=== PATIENT | male | born 1950 | race Caucasian/White ===

== ENCOUNTER → 2017-10-21 14:40 | Outpatient (CLI) | payer OTHER, MEDICARE, SELFPAY ==
[2017-03-25 10:13] VITALS: BP 134/85
[2017-07-15 08:32] VITALS: BMI 32.8
[2017-07-15 13:54] VITALS: BP 126/76
[2017-10-21 16:11] LABS: Hemoglobin A1c 6.9 % (4.2-6.3)
== END ==
PROVIDERS: Family Provider Preventive Medicine Occupational Medicine; PCP Preventive Medicine Occupational Medicine; Visit Provider Urology
DX: E11.9 Type 2 diabetes mellitus without complications (principal)
CPT/HCPCS: 36415; 83036

== ENCOUNTER → 2017-10-29 17:19 | Outpatient (CLI) | payer OTHER, MEDICARE, SELFPAY | PROVIDERS: Visit Provider Urology | DX: C67.8 Malignant neoplasm of overlapping sites of bladder (principal); R31.9 Hematuria, unspecified | CPT/HCPCS: 87086; 87088 ==

== ENCOUNTER → 2017-11-18 13:18 | Outpatient (CLI) | payer OTHER, MEDICARE, SELFPAY ==
--- NOTE | 2017-11-18 13:20 | CT_ITS ---
STUDY: CT ABDOMEN AND PELVIS WITH CONTRAST REASON FOR EXAM: Male, 67 years old. Bladder cancer. RADIATION DOSAGE (If Supplied By Facility): CTDIvol = ( 20.14 ) mGy, DLP = ( 2400.46 ) mGycm TECHNIQUE: Transaxial images were obtained from the dome of the diaphragm to the symphysis pubis without oral contrast. 100 ml of Isovue 300 contrast was administered. Sagittal and coronal images were reconstructed. Individualized dose optimization techniques were used for this CT. COMPARISON: CT of the abdomen and pelvis, July 03, 2017. FINDINGS: There is mild thickening of the lower left oblique fissure. Lungs appear clear. The visualized portions of the heart are within normal limits. Normal liver. Normal gallbladder and extrahepatic biliary system. Normal spleen. Normal pancreas. Normal bilateral adrenal glands. The right kidney is of normal size and cortical thickness. There is normal uptake and excretion of contrast material. There is mild hydronephrosis and ureterectasis to the bladder without evidence of filling defect. Normal left kidney. Normal left ureter. There is a small type I hiatal hernia. The distal stomach is unremarkable. Normal small intestine. There is sigmoid diverticulosis most marked in the distal descending and sigmoid colon without inflammatory change. The appendix is visualized and appears normal. There is diffuse atherosclerotic calcification of the abdominal aorta, without a demonstrated aneurysm. Normal inferior vena cava. Normal retroperitoneum. The urinary bladder is irregular in contour with evidence of enfolding of the bladder wall and mild bladder wall thickening. There is no obvious interval change Normal prostate. There are phleboliths in the pelvis without lymphadenopathy. No free air or free fluid is seen within the peritoneal cavity. Umbilical hernia of omental fat. There is a small left inguinal hernia of omental fat. There are diffuse degenerative changes of the visualized lumbar spine. CT/Abdomen/Pelvis W IV Cont ONLY IMPRESSION: 1. Stable appearance of the urinary bladder. There is no new mass or filling defect. 2. Right hydronephrosis and ureterectasis to the level of the bladder without obstruction or filling defect. This is stable. 3. Small type I hiatal hernia. 4. No interval change. Electronically Signed: Rosales Burciaga DO at 14:33 EDT Tel [phone], Service support ,
[2017-11-18 13:31] LABS: CREATININE FINGERSTICK 1.1 mg/dL (0.70-1.30); EGFR FINGERSTICK > 60.0000 mL/min (>60)
== END ==
PROVIDERS: Family Provider Preventive Medicine Occupational Medicine; PCP Preventive Medicine Occupational Medicine; Visit Provider Urology
DX: C67.8 Malignant neoplasm of overlapping sites of bladder (principal); R31.1 Benign essential microscopic hematuria
CPT/HCPCS: 74177; Q9967; A4216

== ENCOUNTER → 2018-02-18 16:49 | Outpatient (CLI) | payer OTHER, MEDICARE, SELFPAY ==
--- NOTE | 2018-02-18 15:45 | CYSPIN_PTH ---
PATIENT: DOREEN PINZON LOC: [facility] U#:[id number] AGE/SX: 75/M ROOM: RE02/18/[address]: THEE Ayoub : 1950 BED: DIS: SPEC #: [id number] RECD: 02/19/18 08:39 STATUS: FERMIN FAM #: [id number] KIMBER: 02/18/18 15:[address]: Nataliya Stone NP DEPT: CYTOLOGY RECD BY: Pablo Stallings Tissues: Urine Procedures: Pap Stain (control) Special Stain Group II Cytospin Fluid HEADER OPERATION: Not noted PRE-OP DIAGNOSIS: Hematuria, history bladder CA TISSUE SUBMITTED: Urine for cytology DIAGNOSIS CYTOLOGY Urine for cytology (cytospin): Atypical urothelial cells noted. Bloody specimen. Acute inflammation. SJ:[email or web address] 02/22/18 COMMENT Please make reference to previous specimen ([id number]) bladder, TUR, ([id number]) urinary bladder, TUR and ([id number]) bladder, TUR with diagnosis of urothelial carcinoma. Case has been reviewed in consultation with Dr. Samuel who concurs with the above diagnosis. IDC:AM CYTOLOGY STUDY Slides are reviewed. CYTOLOGY GROSS Received is 15 ml of cloudy brown fluid labeled with the patient's name and and designated per the requisition as urine. Submitted for cytology preparation. / JOSSE:lashonda 02/19/18 TC:5 CPT: 92926
[2018-02-18 16:54] LABS: Cytology, Body Fluid / CSF SEE PATHOLOGY REPORT
== END ==
PROVIDERS: Visit Provider Nurse Practitioner Adult Health
DX: R31.9 Hematuria, unspecified (principal); Z85.51 Personal history of malignant neoplasm of bladder
CPT/HCPCS: 87086; 88108; 88313

== ENCOUNTER 2018-03-10 06:23 | Day surgery (SDC) | payer OTHER, MEDICARE, SELFPAY ==
[2018-03-10 06:48] VITALS: BP 130/79; PULSE 108; RESP 20; TEMP 36.4; O2SAT 92; BMI 32.3
[2018-03-10 06:56] LABS: Prothrombin Time Fingerstick 11.7 SEC (11.9-14.4)
[2018-03-10 07:11] LABS: Bedside Glucose 102 mg/dL (70-110)
--- NOTE | 2018-03-10 08:21 | DCINST_ITS ---
Discharge Diet: Light diet - advance as tolerated Discharge Activity: Return to Normal Activity Call your doctor if you observe: Fever of 101 or Higher Instructions: Cystoscopy Allergies/Adverse Reactions: Allergies Iodinated Contrast- Oral and IV Dye [CONTRASTS] Allergy (Verified 02/24/18 15:34 ) Rash PER , HAD CT SCAN 07/2017 WITH IV DYE AND HAD NO DIFFICULTY. Medications to take at Discharge Atorvastatin Calcium [Lipitor] 40 mg PO QHS 09/29/14 Metformin HCl [Glucophage] 1,000 mg PO BIDCM 09/29/14 Venlafaxine XR [Effexor Xr] 150 mg PO QHS 09/29/14 Acetaminophen [Tylenol Tablet] 650 mg PO Q6H PRN PRN 07/14/17 Oxycodone HCl/Acetaminophen [Percocet 5/325] 1 - 2 tablet PO Q6H PRN PRN #20 tablet 07/15/17 Warfarin [Coumadin] 5 mg PO MOWEFR 02/24/18 Warfarin [Coumadin] 7.5 mg PO SUTUTHSA 02/24/18 Insulin Glargine,Hum.rec.anlog [Toudanielito Cline Solostjem] 130 unit SQ DAILY 03/10/18 Primary Care Physician: John Merrill DO [Primary Care Provider] - Test Results: Test results from this visit will be discussed in further detail at your follow- up appointment, if applicable. Please Follow Up With: Cristofer Troncoso MD When: please call to make an appointment.- 6 months
[2018-03-10] MEDS: Cefazolin 2 GM in 0.9% Normal Saline 100 ML IV (08:28)
--- NOTE | 2018-03-10 08:38 | PCM.OPRPT ---
Report of Operation Date of Procedure: 03/10/18 Pre-Operative Diagnosis: History of bladder cancer recent gross hematuria Post-Operative Diagnosis: Same Surgery/Procedure Performed:: Cystoscopy Description of Surgical Findings:: 67-year-old male with a history of bladder cancer presents to the hospital for a diagnostic cystoscopy. 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 67-year-old male was placed supine on the table after smooth induction of general anesthesia, went into the bladder with a 17 Bangladeshi rigid cystourethroscope the entire length of the urethra was normal, the prostate was normal and nonobstructive, inside the bladder he had the right ureteral orifice was resected and opened the patent left was normal, the bladder was nice and smooth some trabeculation within the bladder some areas of inflammation but no tumor seen, inspected the entire bladder did not see any tumors a biopsy just some areas of inflammation in the posterior wall and dome but these appear stable and to monitor these for now. Patient anesthetic reversed plan to see him back in the office 6 months. Type of Anesthesia:: General Drains: none - Admit VTE Documentation VTE Present on Admission: No VTE Mechan Device Prophylaxis: SCD's
[2018-03-10 08:47] VITALS: BP 120/74; BP 130/79; PULSE 100; RESP 18; TEMP 36.8; O2SAT 93
[2018-03-10 09:00] VITALS: BP 115/74; BP 130/79; PULSE 98; RESP 18; TEMP 36.2; O2SAT 96
[2018-03-10 09:01] LABS: Bedside Glucose 75 mg/dL (70-110)
[2018-03-10 09:13] VITALS: BP 130/79
[2018-03-10 09:53] VITALS: BP 130/79
== END 2018-03-10 09:53 | disposition home or self-care (01) ==
LOC: SDC 06:23 → AC 06:24
PROVIDERS: Family Provider Preventive Medicine Occupational Medicine; PCP Preventive Medicine Occupational Medicine; Visit Provider Urology
PROC: 0TJB8ZZ Inspection of Bladder, Via Natural or Artificial Opening Endoscopic (ICD-10-PCS; CPT 52000; principal; 2018-03-10 08:15)
DX: R31.0 Gross hematuria (principal); Z85.51 Personal history of malignant neoplasm of bladder; E11.9 Type 2 diabetes mellitus without complications; Z79.4 Long term (current) use of insulin; Q21.1 Atrial septal defect; I69.311 Memory deficit following cerebral infarction; Z87.891 Personal history of nicotine dependence; M19.90 Unspecified osteoarthritis, unspecified site; Z79.01 Long term (current) use of anticoagulants; Z79.899 Other long term (current) drug therapy; E78.00 Pure hypercholesterolemia, unspecified
CPT/HCPCS: 00910; 52000; 36416; 82962; 85610; J7120; J2405

== ENCOUNTER → 2018-07-19 11:30 | Outpatient (CLI) | payer MEDICARE, SELFPAY ==
--- NOTE | 2018-07-19 11:30 | CYSPIN_PTH ---
PATIENT: DOREEN PINZON LOC: [facility] U#:[id number] AGE/SX: 75/M ROOM: RE07/19/[address]: Dr. Cristofer Troncoso MD : 1950 BED: DIS: SPEC #: [id number] RECD: 07/20/18 11:33 STATUS: FERMIN FAM #: [id number] KIMBER: 07/19/18 11:[address]: Cristofer Troncoso DEPT: CYTOLOGY RECD BY: Pablo Stallings ENTERED: 07/20/18 11:33 SP TYPE: CYSPIN FL OTHR DR: Dr. John Merrill, DO Tissues: Urine Procedures: Pap Stain (control) Special Stain Group II Cytospin Fluid HEADER OPERATION: Not noted PRE-OP DIAGNOSIS: Bladder cancer TISSUE SUBMITTED: Urine for cytology DIAGNOSIS CYTOLOGY Urine for cytology (cytospin): Negative for malignant cells. Acute inflammation. SJ:lashonda 07/21/18 COMMENT Please make reference to previous specimen ([id number], [id number] and [id number]) bladder tumor, TUR with diagnosis of urothelial carcinoma and ([id number]) urine for cytology with diagnosis of atypical urothelial cells noted. Clinical correlation and appropriate follow up are necessary. CYTOLOGY STUDY Slides are reviewed. CYTOLOGY GROSS Received is 55 ml of clear gold fluid labeled with the patient's name and and designated per the requisition as urine. Submitted for cytology preparation. 07/20/18 TC:5 CPT: 01424
[2018-07-19 17:54] LABS: Cytology, Body Fluid / CSF SEE PATHOLOGY REPORT
== END ==
PROVIDERS: Family Provider Preventive Medicine Occupational Medicine; PCP Preventive Medicine Occupational Medicine; Referring Provider Urology; Visit Provider Urology
DX: C67.9 Malignant neoplasm of bladder, unspecified (principal)
CPT/HCPCS: 88108; 88313

== ENCOUNTER → 2019-02-08 | Outpatient (CLI) | payer MEDICARE, SELFPAY ==
[2019-02-08 14:49] LABS: PSA,Total - Annual Screen 0.88 ng/mL (0.00-4.00)
== END | disposition home or self-care (01) ==
LOC: LAB 13:32
PROVIDERS: Family Provider Preventive Medicine Occupational Medicine; PCP Preventive Medicine Occupational Medicine; Referring Provider Urology; Visit Provider Urology
DX: Z12.5 Encounter for screening for malignant neoplasm of prostate (principal)
CPT/HCPCS: 36415; 84153; G0103

== ENCOUNTER → 2019-02-08 | Outpatient (CLI) | payer MEDICARE, SELFPAY ==
--- NOTE | 2019-02-08 | FLU_PTH ---
PATIENT: DOREEN PINZON LOC: [facility] U#:[id number] AGE/SX: 68/M ROOM: RE02/08/[address]: Dr. Cristofer Troncoso MD : 1950 BED: DIS: 02/08/2019 SPEC #: [id number] RECD: 02/08/19 13:30 STATUS: FERMIN FAM #: [id number] KIMBER: 02/08/19 00:[address]: Cristofer Troncoso DEPT: CYTOLOGY RECD BY: Ellen Bustamante ENTERED: 02/09/19 11:07 SP TYPE: Fluid OTHR DR: Dr. John Merrill, DO Tissues: Urine Procedures: Special Stain Group II Cytospin Fluid HEADER OPERATION: Not noted PRE-OP DIAGNOSIS: Encounter for screening for malignant neoplasm of prostate TISSUE SUBMITTED: Urine for cytology DIAGNOSIS CYTOLOGY Urine for cytology (cytospin): A few mildly atypical urothelial cells noted. Acute inflammation. Numerous crystals are noted. See comment. SJ:rg 02/10/19 COMMENT Please make reference to previous specimens ([id number], [id number] and [id number]), bladder tumor, TUR with diagnosis of urothelial carcinoma and cytology ([id number]) urine for cytology with diagnosis of atypical urothelial cells noted. CYTOLOGY STUDY Slides are reviewed. CYTOLOGY GROSS Received is 60 ml of cloudy yellow fluid labeled with the patient's name and and designated per the requisition as urine. Submitted for cytology preparation. / CC:cc 02/09/19 TC:5 CPT: 06482
[2019-02-08 17:36] LABS: Cytology, Body Fluid / CSF SEE PATHOLOGY REPORT
== END | disposition home or self-care (01) ==
PROVIDERS: Family Provider Preventive Medicine Occupational Medicine; PCP Preventive Medicine Occupational Medicine; Referring Provider Urology; Visit Provider Urology
DX: C67.9 Malignant neoplasm of bladder, unspecified (principal)
CPT/HCPCS: 88108; 88305; 88313

== ENCOUNTER → 2019-07-14 15:14 | Outpatient (CLI) | payer MEDICARE, SELFPAY ==
--- NOTE | 2019-07-14 | CYSPIN_PTH ---
PATIENT: DOREEN PINZON LOC: [facility] U#:[id number] AGE/SX: 75/M ROOM: RE07/14/[address]: Dr. Cristofer Troncoso MD : 1950 BED: DIS: SPEC #: [id number] RECD: 07/14/19 14:16 STATUS: FERMIN FAM #: [id number] KIMBER: 07/14/19 00:[address]: Cristofer Troncoso DEPT: CYTOLOGY RECD BY: Sky [place] ENTERED: 07/15/19 09:39 SP TYPE: CYSPIN FL OTHR DR: Dr. John Merrill, Tissues: Urine Procedures: Pap Stain (control) Special Stain Group II Cytospin Fluid HEADER OPERATION: Not noted PRE-OP DIAGNOSIS: Malignant neoplasm of bladder TISSUE SUBMITTED: Urine for cytology DIAGNOSIS CYTOLOGY Urine for cytology (cytospin): Atypical urothelial cells present. Acute inflammation. See comment. JOSSE:lashonda 07/18/19 COMMENT Differential diagnosis includes infection, calculi or low grade urothelial carcinoma. Correlation with clinical findings and appropriate follow up are necessary. Please make reference to previous specimens ([id number], [id number] and [id number]) bladder tumor, TUR with diagnosis of urothelial carcinoma and ([id number] and [id number]) urine for cytology with diagnosis of a few mildly atypical urothelial cells noted. Case has been reviewed in consultation with Dr. Samuel who concurs with the above diagnosis. IDC:AM CYTOLOGY STUDY Slides are reviewed. CYTOLOGY GROSS Received is 15 ml of cloudy yellow fluid labeled with the patient's name and and designated per the requisition as urine. Submitted for cytology preparation. / lashonda 07/15/19 TC:5 CPT: 81878
--- NOTE | 2019-07-14 | CYSPIN_PTH ---
PATIENT: DOREEN PINZON LOC: [facility] U#:[id number] AGE/SX: 75/M ROOM: RE07/14/[address]: Dr. Cristofer Troncoso MD : 1950 BED: DIS: SPEC #: [id number] RECD: 07/14/19 14:16 STATUS: FERMIN FAM #: [id number] KIMBER: 07/14/19 00:[address]: Cristofer Troncoso DEPT: CYTOLOGY RECD BY: Sky [place] ENTERED: 07/15/19 09:39 SP TYPE: CYSPIN FL OTHR DR: Dr. John Merrill, Tissues: Urine Procedures: Pap Stain (control) Special Stain Group II Cytospin Fluid HEADER OPERATION: Not noted PRE-OP DIAGNOSIS: Malignant neoplasm of bladder TISSUE SUBMITTED: Urine for cytology DIAGNOSIS CYTOLOGY Urine for cytology (cytospin): A few mildly atypical urothelial cells noted. Acute inflammation. See comment. SJ:lashonda 07/18/19 COMMENT Correlation with clinical findings and appropriate follow up are necessary. Please make reference to previous specimens ([id number], [id number] and [id number]) bladder tumor, TUR with diagnosis of urothelial carcinoma and ([id number] and [id number]) urine for cytology with diagnosis of a few mildly atypical urothelial cells noted. CYTOLOGY STUDY Slides are reviewed. CYTOLOGY GROSS Received is 15 ml of cloudy yellow fluid labeled with the patient's name and and designated per the requisition as urine. Submitted for cytology preparation. / lashonda 07/15/19 TC:5 CPT: 49878
[2019-07-14 15:36] LABS: Cytology, Body Fluid / CSF SEE PATHOLOGY REPORT
== END ==
PROVIDERS: Family Provider Preventive Medicine Occupational Medicine; PCP Preventive Medicine Occupational Medicine; Referring Provider Urology; Visit Provider Urology
DX: C67.9 Malignant neoplasm of bladder, unspecified (principal)
CPT/HCPCS: 88108; 88313

== ENCOUNTER 2019-08-03 07:59 | Day surgery (SDC) | payer MEDICARE, SELFPAY ==
--- NOTE | 2019-08-02 10:23 | EKG12_ITS ---
Test Reason : PRE-OP Blood Pressure : / mmHG Vent. Rate : 103 BPM Atrial Rate : 103 BPM P-R Int : 158 ms QRS Dur : 090 ms QT Int : 354 ms P-R-T Axes : 058 017 055 degrees QTc Int : 463 ms Sinus tachycardia Low voltage QRS (Limb Leads) Confirmed by LITZY GRAY, KARIS ([id number]), city editor ROBERTH ARELLANO ([id number]) on 08/03/2019 1:07:51 PM Referred By: Cristofer Troncoso Confirmed By:KARIS MCGHEE MD
[2019-08-02 10:27] LABS: Hematocrit 46.4 % (40-54); Hemoglobin 15.6 g/dL (13.0-16.5); Mean Corp Hgb Conc 33.6 g/dL (32-36); Mean Corpuscular Volume 95.1 fL (80-94); Mean Platelet Vol. 9.2 fl (6.2-12.0); Platelet Count 248 K/mm3 (150-450); RBC Distribution Width CV 12.8 % (11.6-14.6); RBC Distribution Width SD 45.1 fl (35.1-43.9); Red Blood Count 4.88 M/mm3 (4.6-6.2)
[2019-08-02 10:44] LABS: Anion Gap 6 (5-15); BUN 13 mg/dL (7-18); BUN/Creat Ratio 14.9 RATIO (10-20); Calcium,Total 8.7 mg/dL (8.5-10.1); Chloride 109 mmol/L (98-107); Creatinine, Serum 0.87 mg/dL (0.70-1.30); EST Glomerular Filtration Rate 92 mL/min (>60); Est Glom Filt Rate - Afr Amer 111 mL/min (>60); Glucose 154 mg/dL (74-106); Potassium 4.4 mmol/L (3.5-5.1); Sodium Level 140 mmol/L (136-145)
[2019-08-03 08:45] LABS: Bedside Glucose 211 mg/dL (70-110)
[2019-08-03 08:49] VITALS: BP 153/83; PULSE 100; RESP 16; TEMP 36.6; O2SAT 96; BMI 35.2
[2019-08-03] MEDS: Lactated Ringers 1,000 ML 100 ML IV (08:58)
[2019-08-03] MEDS: Cefazolin 2 GM in 0.9% Normal Saline 100 ML IV (09:18)
--- NOTE | 2019-08-03 09:26 | DCINST_ITS ---
Discharge Diet: Light diet - advance as tolerated Discharge Activity: Return to Normal Activity Allergies/Adverse Reactions: Allergies Iodinated Contrast Media [CONTRASTS] Allergy (Verified 08/03/19 08:47) Rash PER , HAD CT SCAN 07/2017 WITH IV DYE AND HAD NO DIFFICULTY. Medications to take at Discharge Atorvastatin Calcium [Lipitor] 40 mg PO QHS 09/29/14 Venlafaxine XR [Effexor Xr] 150 mg PO QHS 09/29/14 metFORMIN HCl [Glucophage] 1,000 mg PO BIDCM 09/29/14 Acetaminophen [Tylenol Tablet] 650 mg PO Q6H PRN PRN 07/14/17 Warfarin [Coumadin] 5 mg PO MOWEFR 02/24/18 Warfarin [Coumadin] 7.5 mg PO SUTUTHSA 02/24/18 Insulin Glargine,Hum.rec.anlog [Horacereedanielito Son Kalpanaostjem] 114 unit SQ QHS 03/10/18 Ciprofloxacin [Cipro] 500 mg PO BID #6 tab 08/03/19 The following prescriptions were given: Ciprofloxacin [Cipro] 500 mg PO BID #6 tab Transmission Status: Pending to [id number] Orders to be completed after discharge: 12 Lead EKG [[facility]] Time Frame: 07/27/19, Facility: [facility], Location: Cardiovascular Services Basic Metabolic Profile (BMP) Time Frame: 07/27/19, Facility: [facility], Location: Laboratory CBC-Complete Blood Cnt No Diff Time Frame: 07/27/19, Facility: [facility], Location: Laboratory Hemoglobin A1c Time Frame: 07/27/19, Facility: [facility], Location: Laboratory Primary Care Physician: John Merrill DO [Primary Care Provider] - Test Results: Test results from this visit will be discussed in further detail at your follow- up appointment, if applicable. Please Follow Up With: Cristofer Troncoso MD When: in 2 weeks, please call to make an appointment.
--- NOTE | 2019-08-03 09:42 | PCM.OPRPT ---
Report of Operation Date of Procedure: 08/03/19 Pre-Operative Diagnosis: History of bladder cancer Post-Operative Diagnosis: The same Surgery/Procedure Performed:: Cystoscopy and right retrograde pyelogram, interpretation fluoroscopic images Description of Surgical Findings:: 69-year-old male with a history of bladder cancer comes back to the operating room for a cystoscopy he is refused cystoscopies in the office because of the pain and intolerance. Today working to taken back to the operating room and anesthesia reduced cystoscopy plan to do bilateral retrograde pyelograms. Patient is taken back to the operating room at this reduction of anesthesia is placed in dorsolithotomy position the penis testicles were prepped and draped in usual fashion went in the bladder with a 21 Prydeinig rigid cystourethroscope once inside the bladder identified the bladder was fairly trabeculated thickened bladder with a lot of pockets multiple prior resections areas of scar tissue throughout the bladder. I then identified the right ureteral orifice which was resected and wide open cannulated this with a catheter and performed a retrograde pyelogram that was normal I went then went searching for the left side is a lot of scar tissue trabeculation in the left side I think on CAT scan that the ureter appears to be coming behind a fold I was looking extensively in the left side with both a 30 and 70 degree lens could not identify the left ureteral orifice therefore no left retrograde pyelogram was done. Looked at the bladder extensively and there was no tumors within the bladder a lot of scar tissue and flat scarred lesion throughout the bladder but no tumors identified. Plan to see him next week to review the reports probably will set him up for a CAT scan to check the upper tracts.
[2019-08-03 09:54] VITALS: BP 139/94; BP 153/83; PULSE 98; RESP 16; TEMP 36.2; O2SAT 92
[2019-08-03 10:00] VITALS: BP 132/79; BP 153/83; PULSE 99; RESP 16; O2SAT 95
[2019-08-03 10:06] LABS: Bedside Glucose 156 mg/dL (70-110)
[2019-08-03 10:15] VITALS: BP 128/85; BP 153/83; PULSE 101; RESP 16; O2SAT 95
[2019-08-03 10:20] VITALS: BP 117/76; BP 153/83; PULSE 104; RESP 18; TEMP 36.6; O2SAT 94
[2019-08-03 11:25] VITALS: BP 122/74; BP 153/83; PULSE 104; RESP 16; TEMP 36.2; O2SAT 94
[2019-08-03 16:06] LABS: Prothrombin Time Fingerstick 13.1 SEC (11.9-14.4)
== END 2019-08-03 11:25 | disposition home or self-care (01) ==
LOC: SDC 07:59 → AC 08:00
PROVIDERS: Family Provider Preventive Medicine Occupational Medicine; PCP Preventive Medicine Occupational Medicine; Referring Provider Urology; Visit Provider Urology
PROC: 0TBB8ZX Excision of Bladder, Via Natural or Artificial Opening Endoscopic, Diagnostic (ICD-10-PCS; CPT 52005; principal; 2019-08-03 10:00)
DX: C67.9 Malignant neoplasm of bladder, unspecified (principal); I10 Essential (primary) hypertension; F41.9 Anxiety disorder, unspecified; F32.9 Major depressive disorder, single episode, unspecified; E78.00 Pure hypercholesterolemia, unspecified; E11.9 Type 2 diabetes mellitus without complications; Q21.1 Atrial septal defect; M19.90 Unspecified osteoarthritis, unspecified site; Z86.2 Personal history of diseases of the blood and blood-forming organs and certain disorders involving the immune mechanism; Z86.73 Personal history of transient ischemic attack (TIA), and cerebral infarction without residual deficits; Z79.4 Long term (current) use of insulin; Z79.01 Long term (current) use of anticoagulants; Z79.84 Long term (current) use of oral hypoglycemic drugs; Z79.899 Other long term (current) drug therapy; Z87.891 Personal history of nicotine dependence
CPT/HCPCS: 00910; 52005; 36415; 36416; 76000; 80048; 82962; 83036; 85027; 85610; 93005; J7120; J2405

== ENCOUNTER → 2019-09-26 08:48 | Outpatient (CLI) | payer MEDICARE, SELFPAY ==
--- NOTE | 2019-09-26 08:57 | RAD_ITS ---
STUDY: X-RAY - ESOPHAGUS (BARIUM SWALLOW) WITH FLUOROSCOPY REASON FOR EXAM: Male, 69 years old. DYSPHAGIA. TROUBLE SWALLOWING PILLS LAST COUPLE OF WEEKS PER PATIENT. TECHNIQUE: 28 view(s) of the esophagus were obtained following swallowing of barium. FLUOROSCOPY TIME (if supplied): (1:02) minutes/seconds COMPARISON: None. FINDINGS: There is no demonstrated esophageal foreign body. There is no demonstrated stricture or mucosal abnormality. Normal gastroesophageal junction, without a demonstrated hiatal hernia. The patient ingested a 12 mm tablet of barium. The tablet is trapped at the gastroesophageal junction. Normal visualized aortic arch and descending thoracic aorta. Normal visualized pulmonary parenchyma. Normal visualized osseous structures of the thorax. RAD/Esophagus Only IMPRESSION: The ingested 12 mm tablet of barium is trapped at the gastroesophageal junction. Electronically Signed: Hi Marley, at 12:54 EST , Service support ,
== END ==
LOC: RAD 08:49
PROVIDERS: PCP Preventive Medicine Occupational Medicine; Referring Provider Preventive Medicine Occupational Medicine; Visit Provider Preventive Medicine Occupational Medicine
DX: R13.10 Dysphagia, unspecified (principal)
CPT/HCPCS: 74220

== ENCOUNTER → 2020-01-31 | Outpatient (CLI) | payer MEDICARE, SELFPAY | END | disposition home or self-care (01) | LOC: LABSPEC 11:29 | PROVIDERS: PCP Preventive Medicine Occupational Medicine; Referring Provider Internal Medicine Gastroenterology; Visit Provider Internal Medicine Gastroenterology | DX: Z11.59 Encounter for screening for other viral diseases (principal) | CPT/HCPCS: 87635; G2023; U0003 ==

== ENCOUNTER → 2020-02-03 | Outpatient (CLI) | payer MEDICARE, SELFPAY ==
--- NOTE | 2020-02-03 12:24 | EGD_PTH ---
PATIENT: DOREEN PINZON LOC: [facility] U#:[id number] AGE/SX: 69/M ROOM: RE02/03/[address]: Dr. Alfonzo Ellis MD : 1950 BED: DIS: 02/03/2020 SPEC #: [id number] RECD: 02/03/20 15:16 STATUS: FERMIN FAM #: [id number] KIMBER: 02/03/20 12:[address]: Alfonzo Ellis DEPT: SURGICAL PATHOLOGY RECD BY: Ellen Bustamante ENTERED: 02/06/20 08:31 SP TYPE: EGD BIOPSY OT DR: Dr. John Merrill, [facility] Tissues: Esophageal mucous membrane Procedures: Surgery Specimen Level IV HEADER OPERATION: EGD with biopsies PRE-OP DIAGNOSIS: Dysphagia; GERD; rule out EE TISSUE SUBMITTED: Esophageal biopsies MICROSCOPIC DIAGNOSIS Esophageal biopsies: Fragments of squamous epithelium with minimal chronic inflammation. See comment. JOSSE:[email or web address] 02/07/20 COMMENT Increased number of eosinophils consistent with eosinophilic esophagitis are not seen. Correlation with clinical, endoscopic findings and appropriate follow up are necessary. MICROSCOPIC DESCRIPTION Slides are reviewed. GROSS DESCRIPTION Received in fixative is one container labeled with the patient's name and designated esophageal biopsy. The specimen consists of multiple irregular fragments of light campo soft tissue that in aggregate measure 0.5 x 0.3 x 0.1 cm. The specimen is totally submitted in one cassette. / AM:rg 02/06/20 TC:3 CPT: 56978
== END | disposition home or self-care (01) ==
LOC: LABSPEC 16:18
PROVIDERS: PCP Preventive Medicine Occupational Medicine; Visit Provider Internal Medicine Gastroenterology
DX: K21.9 Gastro-esophageal reflux disease without esophagitis (principal)
CPT/HCPCS: 88305

== ENCOUNTER → 2020-02-15 12:41 | Outpatient (CLI) | payer MEDICARE, SELFPAY ==
--- NOTE | 2020-02-15 13:05 | SP.MBSS_ITS ---
PRIMARY / SECONDARY DIAGNOSIS: dysphagia (R13.10) CURRENT DIET (SOLIDS): regular textures (IDDSI: 7) CURRENT DIET (LIQUIDS): thin liquid diets (IDDSI: 0) DENTITION: natural upper / lower dentition MENTAL STATUS: baseline memory disturbances; sufficient for participation RESPIRATORY STATUS: O2 via room air CURRENT FUNCTIONAL AMBULATION CATEGORY (FAC): 5 (ambulator- independent) REASON FOR REFERRAL: The Patient is a 69 year old male referred for a modified barium swallow (MBS) study to objectively assess the Patients oropharyngeal swallow function under fluoroscopy secondary to reported intermittent coughing with ingestion of thin liquids over multiple years; recent esophageal dilation ~ 2 weeks prior. 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 PREVIOUS MODIFIED BARIUM SWALLOW STUDY RESULTS: None ADDITIONAL OBJECTIVE ASSESSMENT RESULTS: 09/26/2019 barium swallow study revealed ingested 12 mm tablet of barium is trapped at the gastroesophageal junction. ASSESSMENT PARAMETERS: The Patient participated in a Modified Barium Swallow (MBS) study on 02/15/2020. This study was recorded in the lateral view and images were sent to PACs for storage. Scoring was completed through each trial using the 8- point Penetration-Aspiration Scale (PAS) and summarized via the Modified Barium Swallow Impairment Profile (MBSImP) and the Bolus Residue Scale (BRS), with severity scoring through the Dysphagia Severity Rating Scale (DSRS) and the Dysphagia Classification Scale (DCS), and recommended diet textures through the International Dysphagia Diet Standardisation Initiative (IDDSI) RESULTS OF THE EVALUATION: The Patient presents with mild oropharyngeal dysphagia (DSRS: 2; DCS: D0) with shallow transient penetration with thin liquids OBJECTIVE ASSESSMENT OF SWALLOW FUNCTION (QUANTITATIVE ? PER TRIAL): PENETRATION / ASPIRATION SCALE (JIMÉNEZ): 1 = does not enter airway 2 = enters airway/above vocal folds/ejected 3 = enters airway/above vocal folds/not ejected 4 = enters airway/contacts vocal folds/ejected 5 = enters airway/contacts vocal folds/not ejected 6 = enters airway/below vocal folds/ejected 7 = enters airway/below vocal folds/not ejected despite effort 8 = enters airway/below vocal folds/no effort PENETRATION / ASPIRATION SCALE (SCORE): Thin liquid - 5 mL tsp.: 1 Thin liquids via cup (single sip): 2 Thin liquids via cup (single sip): 2 Thin liquids via cup (single sip): 2 Thin liquids via cup (sequential swallows): 2 Pudding via spoon: 1 Regular textured cookie: 1 Thin liquids via straw (sequential swallows): 2 Thin liquids via straw (sequential ? chin tuck): 2 Thin liquids via straw (sequential ? chin tuck): 2 OBJECTIVE ASSESSMENT OF SWALLOW FUNCTION (QUANTITATIVE ? AGGREGATE): MODIFIED BARIUM SWALLOW IMPAIRMENT PROFILE (MBSImP) LABIAL SEAL: 0 (of 4) no labial escape TONGUE CONTROL: 2 (of 3) posterior escape < 50% BOLUS PREPARATION / MASTICATION: 0 (of 3) timely and efficient BOLUS TRANSPORT / LINGUAL MOTION: 0 (of 4) brisk tongue motion ORAL RESIDUE: 1 (of 4) trace residue lining oral structures INITIATION OF PHARYNGEAL SWALLOW: 2 (of 4) posterior surface of epiglottis SOFT PALATE ELEVATION: 0 (of 4) no bolus between soft palate & pharyngeal wall LARYNGEAL ELEVATION: 1 (of 3) partial superior movement / approximation ANTERIOR HYOID EXCURSION: 0 (of 2) complete movement EPIGLOTTIC MOVEMENT: 0 (of 2) complete inversion LARYNGEAL VESTIBULE CLOSURE: 0 (of 2) complete closure PHARYNGEAL STRIPPING WAVE: 0 (of 2) present / complete PE SEGMENT OPENIN (of 3) complete distension / duration; no obstruction TONGUE BASE RETRACTION: 1 (of 4) trace column of contrast PHARYNGEAL RESIDUE: 0 (of 4) complete pharyngeal clearance ESOPHAGEAL BOLUS CLEARANCE: could not view BOLUS RESIDUE SCALE (BRS): BRS SCORE: 1 (of 6) BRS SCORE DESCRIPTION: no residue OBJECTIVE ASSESSMENT OF SWALLOW FUNCTION (SEVERITY GRADING): DYSPHAGIA SEVERITY RATING SCALE (DSRS): DSRS CLASSIFICATION: 2 (mild) DSRS CLASSIFICATION CHARACTERISTICS: oropharyngeal dysphagia present, which can be managed by specific swallow suggestions; slight modification in consistency of diet may be indicated. DYSPHAGIA CLASSIFICATION SCALE (DCS): DCS CLASSIFICATION: D0 (normal) DCS CLASSIFICATION CHARACTERISTICS: without stasis or food consistency restrictions OBJECTIVE ASSESSMENT OF SWALLOW FUNCTION (QUALITATIVE): ORAL PREPARATORY PHASE: sufficient mastication rate and quality; sufficient anterior oral containment during oral manipulation; preserved management of breathing / bolus formation; without disrupted E ? S ? E pattern ORAL TRANSITIONAL PHASE: rather consistent fragmented swallowing (piecemeal deglutition) with habitually large liquid bolus volumes; no presence of transitional incompetence; no bolus consolidation impairments with overall sufficient oral clearance; consistent premature posterior bolus loss ~ 25% with thin liquids PHARYNGEAL PHASE: mild pharyngeal phase dyssynchrony with thin liquids resulting in contributing to shallow prandial penetration of thin liquids; appropriate hyolaryngeal excursion and laryngeal vestibule closure / pressure, with sufficient / consistent laryngeal vestibule pressure generated to expel penetrated material; no signs of pharyngeal dysmotility; no signs of velopharyngeal impairments ESOPHAGEAL PHASE: no obvious esophageal phase abnormalities observed. CONTRIBUTING / COMPLICATING FACTORS AND NOTABLE FINDINGS: memory issues may complicate implementation of intake pattern modification. RESPONSE TO STRATEGIES: all deficits appear to be managed successfully with reduction in bolus rate / volume adjustments with use of straws, though it is difficult to fully verify given his difficulties following commands; potential benefit with execution of the chin tuck posture INTERVENTION RECOMMENDATIONS AND CONSIDERATIONS: The Patient may benefit from skilled speech-language intervention targeting diet texture management and training / implementation of recommended compensatory strategies, though both the Patient and the Patients both politely declined intervention at this time. POST ASSESSMENT EDUCATION: The results and recommendations were discussed with the Patient and the Patients family immediately following MBS completion, with the Patient and the Patients family verbalizing understanding and agreement with all recommendations and education provided. DIET TEXTURE RECOMMENDATIONS: Will recommend a regular textured (IDDSI: 7), thin liquid diet (IDDSI: 0) diet RECOMMENDED COMPENSATORY STRATEGIES: Chin tuck with thin liquids via straw, reduced bolus volume / rate of ingestion, seated upright at 90 degrees during PO intake, remain upright for 30-60 minutes post meal (GERD precaution) IMAGE COUNT: [phone] Sky Calderon M.A., [employer]PH[employer]ENGRAVING [employer]KER, CBIS MBSImP Certified, LSVT Certified [facility] Speech-Language Pathology Department Email: [email or web address]
== END ==
PROVIDERS: PCP Preventive Medicine Occupational Medicine; Referring Provider Internal Medicine Gastroenterology; Visit Provider Internal Medicine Gastroenterology
DX: R05 Cough (principal); T17.920A Food in respiratory tract, part unspecified causing asphyxiation, initial encounter
CPT/HCPCS: 74230; 92611

== ENCOUNTER → 2020-04-16 08:13 | Outpatient (CLI) | payer MEDICARE, SELFPAY ==
--- NOTE | 2020-04-16 | CYSPIN_PTH ---
PATIENT: DOREEN PINZON LOC: [facility] U#:[id number] AGE/SX: 75/M ROOM: RE04/16/[address]: Dr. Cristofer Troncoso MD : 1950 BED: DIS: SPEC #: [id number] RECD: 04/16/20 10:07 STATUS: FERMIN FAM #: [id number] KIMBER: 04/16/20 00:[address]: Cristofer Troncoso DEPT: CYTOLOGY RECD BY: Adrian Garcia ENTERED: 04/16/20 10:07 SP TYPE: CYSPIN FL OTHR DR: Dr. 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 See comment. JOSSE:[email or web address] 04/17/20 COMMENT Please make reference to previous specimens ([id number]) bladder, TUR with diagnosis of urothelial carcinoma and ([id number]) urine for cytology with diagnosis of atypical urothelial cells present. CYTOLOGY STUDY Slides are reviewed. CYTOLOGY GROSS Received is 80 ml of clear amy fluid labeled with the patient's name and and designated per the requisition as urine. Submitted for cytology preparation. / lashonda 04/16/20 TC:5 CPT: 86457
[2020-04-16 08:17] LABS: Cytology, Body Fluid / CSF SEE PATHOLOGY REPORT
== END ==
PROVIDERS: PCP Preventive Medicine Occupational Medicine; Referring Provider Urology; Visit Provider Urology
DX: D09.0 Carcinoma in situ of bladder (principal)
CPT/HCPCS: 88108; 88313

== ENCOUNTER → 2020-04-19 10:09 | Outpatient (CLI) | payer MEDICARE, SELFPAY | PROVIDERS: PCP Preventive Medicine Occupational Medicine; Referring Provider Urology; Visit Provider Urology | DX: R82.89 Other abnormal findings on cytological and histological examination of urine (principal) ==

== ENCOUNTER → 2020-09-03 | Outpatient (CLI) | payer MEDICARE, SELFPAY | END | disposition home or self-care (01) | PROVIDERS: PCP Preventive Medicine Occupational Medicine; Referring Provider Urology; Visit Provider Urology | DX: Z85.51 Personal history of malignant neoplasm of bladder (principal) ==

== ENCOUNTER → 2020-09-11 11:12 | Outpatient (CLI) | payer MEDICARE, SELFPAY ==
[2020-09-11 16:02] LABS: Prothrombin Time (Protime)PT. 34.8 SECONDS (11.7-14.9)
[2020-09-11 16:33] LABS: PSA,Total - Annual Screen 1.11 ng/mL (0.00-4.00)
[2020-09-11 16:37] LABS: Anion Gap 7 (5-15); BUN 16 mg/dL (7-18); BUN/Creat Ratio 21.2 RATIO (10-20); Calcium,Total 9.5 mg/dL (8.5-10.1); Chloride 104 mmol/L (98-107); Cholesterol 127 mg/dL (200); Creatinine, Serum 0.75 mg/dL (0.70-1.30); EST Glomerular Filtration Rate 109 mL/min (>60); Est Glom Filt Rate - Afr Amer 132 mL/min (>60); Glucose 188 mg/dL (74-106); High Density Lipoprotein 33 mg/dL; Sodium Level 137 mmol/L (136-145); Triglycerides 171 mg/dL; Very Low Density Lipoprotein 34 mg/dL (5-40)
[2020-09-11 16:40] LABS: Hemoglobin A1c 9.5 % (3.8-5.6)
[2020-09-11 16:58] LABS: International Normalized Ratio 3.5
== END ==
PROVIDERS: Urology; PCP Preventive Medicine Occupational Medicine; Referring Provider Preventive Medicine Occupational Medicine; Visit Provider Preventive Medicine Occupational Medicine
DX: E11.9 Type 2 diabetes mellitus without complications (principal); D09.0 Carcinoma in situ of bladder; Z79.01 Long term (current) use of anticoagulants; Z12.5 Encounter for screening for malignant neoplasm of prostate; E78.5 Hyperlipidemia, unspecified
CPT/HCPCS: 36415; 80048; 80061; 83036; 84153; 85610; G0103

== ENCOUNTER 2020-09-26 11:14 | Outpatient (RCR) | payer MEDICARE, SELFPAY ==
[2020-09-26 12:28] LABS: International Normalized Ratio 1.5; Prothrombin Time (Protime)PT. 17.9 SECONDS (11.7-14.9)
== END 2020-09-26 18:00 | disposition home or self-care (01) ==
LOC: MTLAB 11:14
PROVIDERS: PCP Preventive Medicine Occupational Medicine; Referring Provider Preventive Medicine Occupational Medicine; Visit Provider Preventive Medicine Occupational Medicine
DX: Z79.01 Long term (current) use of anticoagulants (principal)
CPT/HCPCS: 36415; 85610

== ENCOUNTER 2020-10-18 13:09 | Outpatient (RCR) | payer MEDICARE, SELFPAY ==
[2020-10-18 15:19] LABS: International Normalized Ratio 2.1; Prothrombin Time (Protime)PT. 23.5 SECONDS (11.7-14.9)
== END 2020-10-18 18:00 | disposition home or self-care (01) ==
LOC: MTLAB 13:09
PROVIDERS: PCP Preventive Medicine Occupational Medicine; Referring Provider Preventive Medicine Occupational Medicine; Visit Provider Preventive Medicine Occupational Medicine
DX: Z79.01 Long term (current) use of anticoagulants (principal)
CPT/HCPCS: 36415; 85610

== ENCOUNTER 2020-11-20 13:14 | Outpatient (RCR) | payer MEDICARE, SELFPAY ==
[2020-11-20 15:23] LABS: International Normalized Ratio 1.7; Prothrombin Time (Protime)PT. 19.7 SECONDS (11.7-14.9)
== END 2020-11-20 18:00 | disposition home or self-care (01) ==
LOC: MTLAB 13:14
PROVIDERS: PCP Preventive Medicine Occupational Medicine; Referring Provider Preventive Medicine Occupational Medicine; Visit Provider Preventive Medicine Occupational Medicine
DX: Z79.01 Long term (current) use of anticoagulants (principal)
CPT/HCPCS: 36415; 85610

== ENCOUNTER 2021-01-09 09:44 | Outpatient (RCR) | payer MEDICARE, SELFPAY ==
[2021-01-09 12:48] LABS: International Normalized Ratio 2.6
== END 2021-01-09 18:00 | disposition home or self-care (01) ==
LOC: MTLAB 09:44
PROVIDERS: PCP Preventive Medicine Occupational Medicine; Referring Provider Preventive Medicine Occupational Medicine; Visit Provider Preventive Medicine Occupational Medicine
DX: Z79.01 Long term (current) use of anticoagulants (principal)
CPT/HCPCS: 36415; 85610

== ENCOUNTER 2021-02-26 07:14 | Outpatient (RCR) | payer MEDICARE, SELFPAY ==
[2021-02-26 10:17] LABS: International Normalized Ratio 1.7; Prothrombin Time (Protime)PT. 19.6 SECONDS (11.7-14.9)
== END 2021-02-26 18:00 | disposition home or self-care (01) ==
LOC: MTLAB 07:14
PROVIDERS: PCP Preventive Medicine Occupational Medicine; Referring Provider Preventive Medicine Occupational Medicine; Visit Provider Preventive Medicine Occupational Medicine
DX: Z79.01 Long term (current) use of anticoagulants (principal)
CPT/HCPCS: 36415; 85610

== ENCOUNTER 2021-03-21 13:34 | Outpatient (RCR) | payer MEDICARE, SELFPAY ==
[2021-03-21 15:46] LABS: International Normalized Ratio 2.2
== END 2021-03-21 18:00 | disposition home or self-care (01) ==
LOC: MTLAB 13:34
PROVIDERS: PCP Preventive Medicine Occupational Medicine; Referring Provider Preventive Medicine Occupational Medicine; Visit Provider Preventive Medicine Occupational Medicine
DX: Z79.01 Long term (current) use of anticoagulants (principal)
CPT/HCPCS: 36415; 85610

== ENCOUNTER 2021-04-30 11:59 | Outpatient (RCR) | payer MEDICARE, SELFPAY ==
[2021-04-30 15:20] LABS: International Normalized Ratio 3.4; Prothrombin Time (Protime)PT. 33.3 SECONDS (11.7-14.9)
== END 2021-04-30 18:00 | disposition home or self-care (01) ==
LOC: MTLAB 11:59
PROVIDERS: PCP Preventive Medicine Occupational Medicine; Referring Provider Preventive Medicine Occupational Medicine; Visit Provider Preventive Medicine Occupational Medicine
DX: Z79.01 Long term (current) use of anticoagulants (principal)
CPT/HCPCS: 36415; 85610

== ENCOUNTER 2021-05-22 10:58 | Outpatient (RCR) | payer MEDICARE, SELFPAY ==
[2021-05-01 01:42] VITALS: BMI 35.2
[2021-05-22 12:23] LABS: International Normalized Ratio 1.4; Prothrombin Time (Protime)PT. 16.1 SECONDS (11.7-14.9)
== END 2021-05-22 18:00 | disposition home or self-care (01) ==
LOC: MTLAB 10:58
PROVIDERS: PCP Preventive Medicine Occupational Medicine; Referring Provider Preventive Medicine Occupational Medicine; Visit Provider Preventive Medicine Occupational Medicine
DX: Z79.01 Long term (current) use of anticoagulants (principal)
CPT/HCPCS: 36415; 85610

== ENCOUNTER → 2021-05-23 | Outpatient (CLI) | payer MEDICARE, SELFPAY ==
--- NOTE | 2021-05-23 | CYSPIN_PTH ---
PATIENT: DOREEN PINZON LOC: [facility] U#:[id number] AGE/SX: 70/M ROOM: RE05/23/[address]: Dr. Cristofer Troncoso MD : 1950 BED: DIS: 05/23/2021 SPEC #: [id number] RECD: 05/23/21 15:00 STATUS: FERMIN FAM #: [id number] KIMBER: 05/23/21 00:[address]: Cristofer Troncoso DEPT: CYTOLOGY RECD BY: Ellen Bustamante ENTERED: 05/24/21 07:24 SP TYPE: CYSPIN FL OTHR DR: Dr. John Merrill, DO Tissues: Urine Procedures: Pap Stain (control) Special Stain Group II Cytospin Fluid HEADER OPERATION: Not noted PRE-OP DIAGNOSIS: Screening TISSUE SUBMITTED: Urine for cytology DIAGNOSIS CYTOLOGY Urine for cytology (cytospin): Negative for malignant cells. AM:[email or web address] 05/24/2021 CYTOLOGY STUDY Slides are reviewed. CYTOLOGY GROSS Received is 40 ml of cloudy yellow fluid labeled with the patient's name and and designated per the requisition as urine. Submitted for cytology preparation. / lashonda 05/24/2021 TC:5 CPT: 18161
[2021-05-23 17:12] LABS: Cytology, Body Fluid / CSF SEE PATHOLOGY REPORT
== END | disposition home or self-care (01) ==
PROVIDERS: PCP Preventive Medicine Occupational Medicine; Visit Provider Urology
DX: Z12.5 Encounter for screening for malignant neoplasm of prostate (principal)
CPT/HCPCS: 88108; 88313

== ENCOUNTER → 2021-06-10 08:59 | Outpatient (CLI) | payer MEDICARE, SELFPAY ==
--- NOTE | 2021-06-10 09:23 | EKG12_ITS ---
Test Reason : PRE OP Blood Pressure : / mmHG Vent. Rate : 101 BPM Atrial Rate : 101 BPM P-R Int : 124 ms QRS Dur : 084 ms QT Int : 346 ms P-R-T Axes : 046 010 064 degrees QTc Int : 448 ms Sinus tachycardia Low voltage QRS Borderline ECG Confirmed by RAYMON GRAY, AMARILIS ([id number]), medical transcription editor ROBERTH ARELLANO ([id number]) on 06/10/2021 1:42:00 PM Referred By: Cristofer Troncoso Confirmed By:AMARILIS ENNIS MD
[2021-06-10 10:42] LABS: Hematocrit 45.9 % (40-54); Hemoglobin 15.3 g/dL (13.0-16.5); Mean Corp Hgb Conc 33.3 g/dL (32-36); Mean Corpuscular Hgb 31.2 pg (27.0-32.0); Mean Corpuscular Volume 93.5 fL (80-94); Mean Platelet Vol. 9.4 fl (6.2-12.0); Platelet Count 302 K/mm3 (150-450); RBC Distribution Width CV 12.9 % (11.6-14.6); RBC Distribution Width SD 44.3 fl (35.1-43.9); Red Blood Count 4.91 M/mm3 (4.6-6.2); White Blood Count 9.4 K/mm3 (4.4-11.0)
[2021-06-10 11:06] LABS: Anion Gap 9 (5-15); BUN 15 mg/dL (7-18); BUN/Creat Ratio 14.7 RATIO (10-20); Calcium,Total 9.2 mg/dL (8.5-10.1); Chloride 105 mmol/L (98-107); Creatinine, Serum 1.02 mg/dL (0.70-1.30); EST Glomerular Filtration Rate 77 mL/min (>60); Est Glom Filt Rate - Afr Amer 93 mL/min (>60); Glucose 128 mg/dL (74-106); Potassium 4.1 mmol/L (3.5-5.1); Sodium Level 140 mmol/L (136-145)
[2021-06-10 11:28] LABS: Hemoglobin A1c 7.4 % (3.8-5.6)
--- NOTE | 2021-06-12 07:24 | PCM.HP.STD ---
HPI - General HPI Narrative DOREEN PINZON, is a 70 M who presents for a TURP PFS Medical History (Updated 06/05/21 @ 13:58 by Nikkie Cooper) Anxiety Back pain Bladder disease Cancer Cardiology follow-up encounter Chest pain Depression Dietary restriction Difficulty swallowing Former smoker Gastric reflux High cholesterol History of echocardiogram History of stress test Hx of carcinoma of bladder Insulin dependent diabetes mellitus Leg cramps Migraine headache Shortness of breath on exertion Stroke/cerebrovascular accident Syncope Wears glasses Home Medications atorvastatin 40 mg PO QHS 09/29/14 [History Last Taken 06/12/17 21:00] metformin 1,000 mg PO BIDCM 09/29/14 [History Last Taken 06/13/17 05:00] venlafaxine 150 mg PO QHS 09/29/14 [History Last Taken 06/12/17 21:00] acetaminophen [Tylenol] 650 mg PO Q6H PRN PRN 07/14/17 [History Last Taken Unknown] warfarin [Jantoven] 5 mg PO SUTUWEFRSA 02/24/18 [History Last Taken Unknown] warfarin [Jantoven] 7.5 mg PO MOTH 02/24/18 [History Last Taken 03/07/18] insulin glargine U-300 conc [Toujeo Max Solostar] 128 unit SQ QHS 03/10/18 [History Last Taken Unknown] amoxicillin 500 mg PO TID 06/05/21 [History Last Taken Unknown] finasteride 5 mg PO DAILY 06/05/21 [History Last Taken Unknown] pantoprazole 40 mg PO DAILY 06/05/21 [History Last Taken Unknown] Allergy/AdvReac Type Severity Reaction Status Date / Time Iodinated Contrast Media Allergy Rash Verified 06/05/21 13:41 [CONTRASTS] Surgical History (Updated 06/05/21 @ 13:58 by Nikkie Cooper) History of cystoscopy History of tonsillectomy and adenoidectomy Hx of colonoscopy Social History Smoking Status: Former smoker Vital Signs Vital Signs Vital Signs: Weight Weight: 117.934 kg Results Lab / Micro Data Result Diagrams: 06/10/21 09:42 06/10/21 09:42
[2021-06-12 07:45] VITALS: BP 125/68; PULSE 104; RESP 16; TEMP 35.8; O2SAT 90; BMI 33.8
[2021-06-12] MEDS: Lactated Ringers 1,000 ML 100 ML IV (07:57)
--- NOTE | 2021-06-12 08:45 | EKG12_ITS ---
Test Reason : PREOP Blood Pressure : / mmHG Vent. Rate : 094 BPM Atrial Rate : 094 BPM P-R Int : 156 ms QRS Dur : 090 ms QT Int : 358 ms P-R-T Axes : 064 024 057 degrees QTc Int : 447 ms Normal sinus rhythm Normal ECG When compared with ECG of 10-JUN-2021 09:34, No significant change was found Confirmed by RAYMON GRAY, AMARILIS ([id number]), purchase request editor ROBERTH ARELLANO ([id number]) on 06/19/2021 10:06:53 AM Referred By: Cristofer Troncoso Confirmed By:AMARILIS ENNIS MD
[2021-06-12 09:41] LABS: Bedside Glucose 183 mg/dL (70-110)
[2021-06-12 10:45] LABS: Prothrombin Time Fingerstick 12.5 SEC (11.9-14.4)
== END ==
LOC: AC 06-12 09:07 → PAT 07-11 09:00
PROVIDERS: Anesthesiology; PCP Preventive Medicine Occupational Medicine; Referring Provider Urology; Visit Provider Urology
DX: Z01.818 Encounter for other preprocedural examination (principal)
CPT/HCPCS: 36415; 36416; 80048; 82962; 83036; 85027; 85610; 93005; J7120; J2405

== ENCOUNTER → 2021-07-16 07:24 | Outpatient (CLI) | payer MEDICARE, SELFPAY ==
--- NOTE | 2021-07-16 07:27 | ECHOCS_ITS ---
Reason For Study: Chest pain, SOB Procedure This was a 2D Doppler, Color Flow transthoracic echocardiogram. The study was technically difficult. Exam performed in department. Left Ventricle Normal LV size. Left ventricular systolic function is normal. The estimated ejection fraction is 55 %. No regional wall motion abnormalities noted. Right Ventricle Normal RV size. Normal systolic function. Atria Normal left atrium. Normal right atrium. Mitral Valve Normal mitral valve. Tricuspid Valve The tricuspid valve is not well visualized. Aortic Valve The aortic valve is not well visualized. Pulmonic Valve Normal pulmonic valve. Great Vessels Normal aortic root. The pulmonary artery is normal size. Normal inferior vena cava. Pericardium/Pleural No pericardial effusion. Medication Diluted definity 2ml given slow IV push to enhance endocardial definition. MMode/2D Measurements & Calculations LVIDd: 3.8 cm IVSd: 1.00 cm Ao root diam: 2.8 cm LVIDs: 2.5 cm LVPWd: 1.0 cm RVDd: 2.7 cm FS: 32.9 % LAV(MOD-bp): 16.3 ml LA A4 area: 7.6 cm2 LA dimension(2D): 2.3 cm LAV(MOD-bp) Indexed: 6.9 ml/m2 LAV(MOD-sp2): 17.7 ml LAV(MOD-sp4): 13.0 ml RA A4 area: 7.2 cm2 Doppler Measurements & Calculations MV E max deepak: 54.3 cm/sec Lat Peak E' Deepak: 7.8 cm/sec Med Peak E' Deepak: 5.8 cm/sec E/E' lat: 7.0 E/E' med: 9.3 Ao V2 max: 102.1 cm/sec LV V1 max: 86.6 cm/sec PA V2 max: 99.0 cm/sec Ao max P.2 mmHg LV V1 max P.0 mmHg ECHO/Echo Complete W/ Contrast Interpretation Summary Normal LV size. Left ventricular systolic function is normal. The estimated ejection fraction is 55 %. The study was technically limited. The study was technically difficult. Contras t injection was performed. Ordering Physician: Ru Ronquillo Referring Physician: John Merrill Performed By: Krystle Mejia RDCS
[2021-07-16 11:01] LABS: Bedside Glucose 201 mg/dL (70-110)
--- NOTE | 2021-07-16 16:33 | STRESSREP ---
Stress Test Report Pharmacologic marker perfusion stress test. Resting EKG demonstrates sinus tachycardia with a rate of 105 bpm normal intervals are noted. 0.4 mg of regadenoson was infused per usual protocol followed by Intravenous saline flush injection continuous EKG monitoring was performed. Maximum heart rate attained was 116 bpm which was 77% of max impact at heart rate the maximum workload was 1 metabolic equivalent. At rest there were no ST or T wave changes noted to suggest abnormal flow reserve and at peak infusion nonspecific ST changes were noted with did not meet the criteria for ischemia. No clinical angina was noted. Myocardial perfusion protocol. 14.8 mCi of technetium 99m sestamibi was injected at rest. 0.4 mg of regadenoson was infused per usual protocol. At peak infusion 44.9 mCi of technetium 99m sestamibi was injected stress images were obtained stress and rest images were reconstructed and compared in the short axis vertical long horizontal long axis. Gated images also obtained per Perfusion SPECT analysis: Review of the stress images demonstrate normal uptake of tracer noted in all areas of the myocardium. The resting images similarly demonstrate normal uptake of tracer noted in all areas of the myocardium. No areas of reversibility are noted suggest ischemia and no previous infarct is noted. Gated SPECT analysis: The gated ejection fraction is 70%. Conclusion: Normal pharmacologic myocardial perfusion stress test. Preserved ejection fraction.
== END ==
PROVIDERS: PCP Preventive Medicine Occupational Medicine; Referring Provider Internal Medicine Cardiovascular Disease; Visit Provider Internal Medicine Cardiovascular Disease
DX: R07.9 Chest pain, unspecified (principal)
CPT/HCPCS: 78452; 82962; 93017; 93306; A9500; Q9957; A4216; C8929; J2785; J3490

== ENCOUNTER 2021-08-01 10:59 | Outpatient (RCR) | payer MEDICARE, SELFPAY ==
[2021-05-31 02:21] VITALS: BMI 35.2
[2021-08-01 12:11] LABS: Prothrombin Time (Protime)PT. 21.9 SECONDS (11.7-14.9)
== END 2021-08-31 18:00 | disposition home or self-care (01) ==
LOC: MTLAB 10:59
PROVIDERS: PCP Preventive Medicine Occupational Medicine; Referring Provider Preventive Medicine Occupational Medicine; Visit Provider Preventive Medicine Occupational Medicine
DX: Z79.01 Long term (current) use of anticoagulants (principal)
CPT/HCPCS: 36415; 85610

== ENCOUNTER 2021-10-09 09:51 | Outpatient (RCR) | payer MEDICARE, SELFPAY ==
[2021-09-01 03:54] VITALS: BMI 35.2
[2021-10-09 12:50] LABS: Prothrombin Time (Protime)PT. 21.7 SECONDS (11.7-14.9)
== END 2021-10-09 18:00 | disposition home or self-care (01) ==
LOC: MTLAB 09:51
PROVIDERS: PCP Preventive Medicine Occupational Medicine; Referring Provider Preventive Medicine Occupational Medicine; Visit Provider Preventive Medicine Occupational Medicine
DX: Z79.01 Long term (current) use of anticoagulants (principal)
CPT/HCPCS: 36415; 85610

== ENCOUNTER 2021-11-26 11:20 | Outpatient (RCR) | payer MEDICARE, SELFPAY ==
[2021-10-29 10:44] VITALS: BMI 35.2
--- NOTE | 2021-11-26 | CYSPIN_PTH ---
PATIENT: DOREEN PINZON LOC: [facility] U#:[id number] AGE/SX: 71/M ROOM: RE11/26/[address]: Dr. John Merrill DO : 1950 BED: DIS: 11/28/2021 SPEC #: [id number] RECD: 11/26/21 12:00 STATUS: FERMIN FAM #: [id number] KIMBER: 11/26/21 00:[address]: Cristofer Troncoso DEPT: CYTOLOGY RECD BY: Ellen Bustamante ENTERED: 11/26/21 13:23 SP TYPE: CYSPIN FL OTHR DR: Dr. John Merrill DO Tissues: Urine Procedures: Pap Stain (control) Special Stain Group II Cytospin Fluid HEADER OPERATION: Not noted PRE-OP DIAGNOSIS: Abdominal pain TISSUE SUBMITTED: Urine for cytology DIAGNOSIS CYTOLOGY Urine for cytology (cytospin): Negative for malignant cells. AM:lashonda 11/27/2021 CYTOLOGY STUDY Slides are reviewed. CYTOLOGY GROSS Received is 100 ml of brown cloudy fluid labeled with the patient's name and and designated per the requisition as urine. Submitted for cytology preparation. / lashonda 11/26/2021 TC:5 CPT: 86653
[2021-11-26 11:26] LABS: Cytology, Body Fluid / CSF SEE PATHOLOGY REPORT
[2021-11-26 12:36] LABS: Prothrombin Time (Protime)PT. 65.1 SECONDS (11.7-14.9)
[2021-11-26 12:41] LABS: International Normalized Ratio 7.8
== END 2021-11-28 18:00 | disposition home or self-care (01) ==
LOC: MTLAB 11:20
PROVIDERS: Urology; PCP Preventive Medicine Occupational Medicine; Referring Provider Preventive Medicine Occupational Medicine; Visit Provider Preventive Medicine Occupational Medicine
DX: Z79.01 Long term (current) use of anticoagulants (principal); R10.9 Unspecified abdominal pain
CPT/HCPCS: 36415; 85610; 87077; 87086; 87088; 88108; 88313

== ENCOUNTER 2021-11-29 10:19 | Outpatient (RCR) | payer MEDICARE, SELFPAY ==
[2021-11-29 02:16] VITALS: BMI 35.2
[2021-11-29 12:28] LABS: International Normalized Ratio 2.1; Prothrombin Time (Protime)PT. 22.9 SECONDS (11.7-14.9)
== END 2021-11-29 18:00 | disposition home or self-care (01) ==
LOC: MTLAB 10:19
PROVIDERS: PCP Preventive Medicine Occupational Medicine; Referring Provider Preventive Medicine Occupational Medicine; Visit Provider Preventive Medicine Occupational Medicine
DX: Z79.01 Long term (current) use of anticoagulants (principal)
CPT/HCPCS: 36415; 85610

== ENCOUNTER 2021-12-09 13:43 | Outpatient (CLI) | payer MEDICARE, SELFPAY ==
[2021-12-09 14:08] LABS: International Normalized Ratio 1.6; Prothrombin Time (Protime)PT. 18.7 SECONDS (11.7-14.9)
--- NOTE | 2021-12-09 14:16 | CT_ITS ---
STUDY: CT ABDOMEN AND PELVIS WITH AND WITHOUT CONTRAST REASON FOR EXAM: Male, 71 years old. ABD PAIN. History of bladder cancer. RADIATION DOSAGE (If Supplied By Facility): CTDIvol = ( 24.65 ) mGy, DLP = ( 4835.07 ) mGycm TECHNIQUE: Transaxial images were obtained from the dome of the diaphragm to the symphysis pubis without oral contrast. IV 100mL Isovue-300 was administered. Sagittal and coronal images were reconstructed. Individualized dose optimization techniques were used for this CT. COMPARISON: Comparison is made with prior study dated 11/18/2017 and 07/03/2017. FINDINGS: The visualized lung bases are unremarkable. Coronary artery calcification. There is decreased attenuation of the liver consistent with steatosis. Normal gallbladder and extrahepatic biliary system. Normal spleen. Normal pancreas. Normal bilateral adrenal glands. 2 mm nonobstructive calculus in the mid posterior calyx of the right kidney. Mild degree of a right hydronephrosis and right hydroureter down to the level of the ureterovesical junction. No obstructive calculus is seen. There is evidence of right perinephric stranding. 6 mm nonobstructive calculus in the lower pole calyx of the left kidney. There is a small hiatal hernia. Normal small intestine. Normal colon. The appendix is visualized and appears normal. There is scattered atherosclerotic calcification of the abdominal aorta, without a demonstrated aneurysm. Normal inferior vena cava. Normal retroperitoneum. Stable deformity of the urinary bladder most likely postsurgical in nature. There are prostatic calcifications. Normal abdominal wall. There are degenerative changes of the visualized lumbar spine. CT/CT Abd/Pelvis W/WO Contrast IMPRESSION: Mild degree of the right hydronephrosis and hydroureter down to the level of the ureterovesical junction without an obstructive process seen. There is evidence of right perinephric stranding. 2 mm nonobstructive calculus in the mid posterior calyx of the right kidney. 6 mm nonobstructive calculus in the lower pole calyx of the left kidney. Electronically Signed: Hi Marley MD at 9:22 EDT ,
[2021-12-09 14:26] LABS: EGFR FINGERSTICK > 60.0000 mL/min (>60)
== END 2021-12-09 23:59 | disposition home or self-care (01) ==
LOC: CT 13:44
PROVIDERS: PCP Preventive Medicine Occupational Medicine; Visit Provider Urology
DX: R10.9 Unspecified abdominal pain (principal); Z79.01 Long term (current) use of anticoagulants
CPT/HCPCS: 36415; 74178; 85610

== ENCOUNTER 2022-01-22 11:34 | Outpatient (RCR) | payer MEDICARE, SELFPAY ==
[2021-12-29 03:58] VITALS: BMI 35.2
[2022-01-22 15:40] LABS: International Normalized Ratio 2.5; Prothrombin Time (Protime)PT. 26.4 SECONDS (11.7-14.9)
[2022-01-22 15:57] LABS: Anion Gap 7 (5-15); BUN 17 mg/dL (7-18); BUN/Creat Ratio 16.3 RATIO (10-20); Calcium,Total 8.9 mg/dL (8.5-10.1); Chloride 106 mmol/L (98-107); Cholesterol 180 mg/dL (200); Creatinine, Serum 1.04 mg/dL (0.70-1.30); EST Glomerular Filtration Rate 75 mL/min (>60); Est Glom Filt Rate - Afr Amer 90 mL/min (>60); Glucose 134 mg/dL (74-106); High Density Lipoprotein 43 mg/dL; Potassium 4.3 mmol/L (3.5-5.1); Sodium Level 138 mmol/L (136-145); Triglycerides 152 mg/dL; Very Low Density Lipoprotein 30 mg/dL (5-40)
[2022-01-22 16:06] LABS: Microalbumin,Random Urine 23.8 mg/L (NO RANGE EST.)
== END 2022-01-22 18:00 | disposition home or self-care (01) ==
LOC: MTLAB 11:34
PROVIDERS: PCP Preventive Medicine Occupational Medicine; Referring Provider Preventive Medicine Occupational Medicine; Visit Provider Preventive Medicine Occupational Medicine
DX: Z79.01 Long term (current) use of anticoagulants (principal)
CPT/HCPCS: 36415; 80048; 80061; 82043; 85610

== ENCOUNTER 2022-04-08 09:03 | Outpatient (RCR) | payer MEDICARE, SELFPAY ==
[2022-01-29 01:43] VITALS: BMI 35.2
[2022-04-08 10:14] LABS: International Normalized Ratio 2.7; Prothrombin Time (Protime)PT. 28.2 SECONDS (11.7-14.9)
== END 2022-04-08 18:00 | disposition home or self-care (01) ==
LOC: MTLAB 09:03
PROVIDERS: PCP Preventive Medicine Occupational Medicine; Referring Provider Preventive Medicine Occupational Medicine; Visit Provider Preventive Medicine Occupational Medicine
DX: Z79.01 Long term (current) use of anticoagulants (principal)
CPT/HCPCS: 36415; 85610

== ENCOUNTER 2022-06-17 12:56 | Outpatient (RCR) | payer MEDICARE, SELFPAY ==
[2022-05-01 01:37] VITALS: BMI 35.2
[2022-06-17 15:27] LABS: International Normalized Ratio 2.7
== END 2022-06-17 18:00 | disposition home or self-care (01) ==
LOC: MTLAB 12:56
PROVIDERS: PCP Preventive Medicine Occupational Medicine; Referring Provider Preventive Medicine Occupational Medicine; Visit Provider Preventive Medicine Occupational Medicine
DX: Z79.01 Long term (current) use of anticoagulants (principal)
CPT/HCPCS: 36415; 85610

== ENCOUNTER 2022-11-04 11:12 | Outpatient (RCR) | payer MEDICARE, SELFPAY ==
[2022-07-01 10:26] VITALS: BMI 35.2
[2022-11-04 13:13] LABS: International Normalized Ratio 2.7
== END 2022-11-28 21:10 | disposition home or self-care (01) ==
LOC: MTLAB 11:12
PROVIDERS: PCP Preventive Medicine Occupational Medicine; Referring Provider Preventive Medicine Occupational Medicine; Visit Provider Preventive Medicine Occupational Medicine
DX: Z79.01 Long term (current) use of anticoagulants (principal); R10.9 Unspecified abdominal pain; E78.49 Other hyperlipidemia; E11.9 Type 2 diabetes mellitus without complications
CPT/HCPCS: 36415; 85610

== ENCOUNTER → 2022-12-16 | Outpatient (CLI) | payer MEDICARE, SELFPAY ==
--- NOTE | 2022-12-16 | CYSPIN_PTH ---
PATIENT: DOREEN PINZON LOC: [facility] U#:[id number] AGE/SX: 72/M ROOM: RE12/16/[address]: Dr. Cristofer Troncoso MD : 1950 BED: DIS: 12/16/2022 SPEC #: [id number] RECD: 12/16/22 15:00 STATUS: FERMIN HEChuyita #: [id number] KIMBER: 12/16/22 00:[address]: Cristofer Troncoso DEPT: CYTOLOGY RECD BY: Ellen Bustamante ENTERED: 12/17/22 08:11 SP TYPE: CYSPIN FL OTHR DR: Dr. John Merrill, DO Tissues: Urine Procedures: Pap Stain (control) Special Stain Group II Cytospin Fluid HEADER OPERATION: Not noted PRE-OP DIAGNOSIS: Malignant neoplasm of bladder TISSUE SUBMITTED: Urine for cytology DIAGNOSIS CYTOLOGY Urine for cytology (cytospin): Negative for malignant cells. Acute inflammation. Abundant crystalline debris. See comment. AM:lashonda 12/17/2022 COMMENT Clinical correlation is suggested. CYTOLOGY STUDY Slides are reviewed. CYTOLOGY GROSS Received is 15 ml of yellow cloudy fluid labeled with the patient's name and and designated per the requisition as urine. Submitted for cytology preparation. / lashonda 12/16/2022 TC:5 CPT: 70241
[2022-12-16 15:08] LABS: PSA,Total - Annual Screen 0.17 ng/mL (0.00-4.00)
[2022-12-16 16:04] LABS: Cytology, Body Fluid / CSF SEE PATHOLOGY REPORT
== END | disposition home or self-care (01) ==
PROVIDERS: PCP Preventive Medicine Occupational Medicine; Referring Provider Urology; Visit Provider Urology
DX: Z12.5 Encounter for screening for malignant neoplasm of prostate (principal); C67.3 Malignant neoplasm of anterior wall of bladder
CPT/HCPCS: 36415; 84153; 88108; 88313; G0103

== ENCOUNTER 2022-12-22 09:32 | Outpatient (RCR) | payer MEDICARE, SELFPAY ==
[2022-11-28 21:10] VITALS: BMI 35.2
[2022-12-22 12:26] LABS: International Normalized Ratio 3.5; Prothrombin Time (Protime)PT. 34.9 SECONDS (11.7-14.9)
== END 2022-12-28 05:14 | disposition home or self-care (01) ==
LOC: MTLAB 09:32
PROVIDERS: PCP Preventive Medicine Occupational Medicine; Referring Provider Preventive Medicine Occupational Medicine; Visit Provider Preventive Medicine Occupational Medicine
DX: Z79.01 Long term (current) use of anticoagulants (principal)
CPT/HCPCS: 36415; 85610

== ENCOUNTER → 2023-01-13 | Outpatient (CLI) | payer MEDICARE, SELFPAY ==
[2023-01-13 10:31] LABS: Hematocrit 45.3 % (40-54); Hemoglobin 14.6 g/dL (13.0-16.5); Mean Corp Hgb Conc 32.2 g/dL (32-36); Mean Corpuscular Hgb 30.4 pg (27.0-32.0); Mean Corpuscular Volume 94.2 fL (80-94); Mean Platelet Vol. 9.2 fl (6.2-12.0); Platelet Count 406 K/mm3 (150-450); RBC Distribution Width CV 12.4 % (11.6-14.6); RBC Distribution Width SD 43.4 fl (35.1-43.9); Red Blood Count 4.81 M/mm3 (4.6-6.2); White Blood Count 9.8 K/mm3 (4.4-11.0)
[2023-01-13 10:53] LABS: Microalbumin:Creatinine Ratio 206.7 mg/g CRE (<30 mg/g CRE)
[2023-01-13 11:12] LABS: ALB/GLOB Ratio 0.7 RATIO (0.9-2.4); AST(SGOT) 13 U/L (15-37); Alanine Aminotransfer ALT/SGPT 23 U/L (16-61); Albumin, Serum 3.2 g/dL (3.2-5.0); Alkaline Phosphatase 96 U/L (45-117); Amylase 40 U/L (25-115); Anion Gap 8 (5-15); BUN 24 mg/dL (7-18); BUN/Creat Ratio 18.5 RATIO (10-20); Calcium,Total 9.6 mg/dL (8.5-10.1); Chloride 106 mmol/L (98-107); Cholesterol 149 mg/dL (200); EST Glomerular Filtration Rate 58 mL/min (>60); Est Glom Filt Rate - Afr Amer 70 mL/min (>60); Globulin 4.8 g/dL (2.2-4.2); Glucose 132 mg/dL (74-106); High Density Lipoprotein 37 mg/dL; Lipase 25 U/L (13-75); Potassium 4.4 mmol/L (3.5-5.1); Sodium Level 138 mmol/L (136-145); Triglycerides 151 mg/dL; Very Low Density Lipoprotein 30 mg/dL (5-40)
== END | disposition home or self-care (01) ==
LOC: MTLAB 08:17
PROVIDERS: PCP Preventive Medicine Occupational Medicine; Referring Provider Preventive Medicine Occupational Medicine; Visit Provider Preventive Medicine Occupational Medicine
DX: E78.49 Other hyperlipidemia (principal); E11.9 Type 2 diabetes mellitus without complications; R10.13 Epigastric pain
CPT/HCPCS: 36415; 80053; 80061; 82043; 82150; 82570; 83690; 85027

== ENCOUNTER → 2023-01-23 | Outpatient (CLI) | payer MEDICARE, SELFPAY ==
--- NOTE | 2023-01-23 10:47 | US_ITS ---
STUDY: ABDOMINAL ULTRASOUND REASON FOR EXAM: Male, 72 years old. EPIGASTRIC PAIN TECHNIQUE: Transabdominal ultrasound was performed with real-time and static escobar scale imaging. TECHNICAL QUALITY: Limited. Examination limited due to a combination of factors including obesity and bowel gas. COMPARISON: CT scan 12/09/2021. FINDINGS: Liver: The liver measures 18.8 cm. There is increased echogenicity consistent with fatty infiltration. The bile ducts are within normal limits. There is hepatic color flow. The direction of portal flow is hepatopetal. There is no demonstrated mass lesion. Portal vein measurement: Gallbladder: Normal distended gallbladder. The gallbladder wall measures 1.6 mm. There is a negative sonographic Singh''s sign. There is no pericholecystic fluid. There are no gallstones. Common Bile Duct (C.B.D.): The common bile duct measures 2 mm. Pancreas: Normal size of the head, body of the pancreas. Tail of the pancreas is suboptimally seen. There is normal echogenicity of the pancreas. There is no demonstrated pancreatic mass or cyst. Spleen: Normal size of the spleen. The spleen measures 10.5 cm. Right Kidney: Normal size of the right kidney. The right kidney measures 12.7 x 6.1 x 6.4 cm. There is cortical scarring with thinning and irregularity of the cortex. The right cortex measures 1.6 cm. There is no demonstrated renal mass or cyst. Possible small nonobstructing renal stones. There is mild hydronephrosis of the right kidney. Left Kidney: Normal size of the left kidney. The left kidney measures 12.5 x 5.4 x 6.0 cm. There is cortical scarring with thinning and irregularity of the cortex. The left cortex measures 1.6 cm. There is no demonstrated renal mass or cyst. Possible small nonobstructing renal stones. There is moderate hydronephrosis of the left kidney. Aorta: 2.1 cm I.V.C.: The IVC is patent. There is no ascites. US/Abdomen Complete IMPRESSION: Limited as above. Prominent bilateral renal scarring. Bilateral hydronephrosis worse on the left. Possible bilateral nonobstructing renal stones. Electronically Signed: Moustapha Ruiz MD at 21:44 EDT ,
== END | disposition home or self-care (01) ==
LOC: US 10:45
PROVIDERS: PCP Preventive Medicine Occupational Medicine; Referring Provider Preventive Medicine Occupational Medicine; Visit Provider Preventive Medicine Occupational Medicine
DX: R10.13 Epigastric pain (principal)
CPT/HCPCS: 76700

== ENCOUNTER 2023-02-13 16:22 | Emergency (ER) | payer MEDICARE, SELFPAY ==
[2023-02-13 16:22] VITALS: BP 142/73; PULSE 100; RESP 17; TEMP 36.7; O2SAT 96; BMI 34.8
--- NOTE | 2023-02-13 16:56 | EX.ED.GUMALE ---
HPI History of Present Illness Chief Complaint: Complaint Informant: patient and spouse/S.O. Narrative Narrative: Patient presents with inability to urinate. This patient has had bladder cancer that was treated with localized bladder washes about 3 years ago. He has also had kidney stones. He also has BPH and is on finasteride. He states about 2 or 3 days ago he started with some difficulty with urinating. It also did hurt a bit to urinate. It sounds like it burned. He saw his private physician yesterday. Urine was sent off but they do not have results. But evidently there was both blood and white cells in the urine although they have not seen blood. He was started on Macrobid. But since then he has had frequent urination of just small amounts and now cannot go at all. He feels like he has backed up. He is not having flank pain. No fevers or chills. This is really suprapubic discomfort. [facility] Medical History Anxiety Back pain Bladder cancer Chest pain Depression Diabetes Dietary restriction Difficulty swallowing Former smoker Gastric reflux Hematuria History of CVA (cerebrovascular accident) (1991) History of echocardiogram History of stress test Hx of carcinoma of bladder Hyperlipidemia Insulin dependent diabetes mellitus Leg cramps senior care current use of anticoagulant Migraine headache Obesity Shortness of breath on exertion Stroke/cerebrovascular accident Syncope Wears glasses Home Medications atorvastatin 40 mg tablet 40 mg PO QHS 09/29/14 [History Last Taken 06/12/17 21:00] metformin 1,000 mg tablet 1,000 mg PO BIDCM 09/29/14 [History Last Taken 06/13/17 05:00] venlafaxine 150 mg capsule,extended release 24 hr 150 mg PO QHS 09/29/14 [History Last Taken 06/12/17 21:00] acetaminophen 325 mg tablet (Tylenol) 650 mg PO Q6H PRN PRN Mild Pain, Fever 07/14/17 [History Last Taken Unknown] warfarin 5 mg tablet (Jantoven) 5 mg PO SUTUWEFRSA 02/24/18 [History Last Taken 06/07/21] warfarin 7.5 mg tablet (Jantoven) 7.5 mg PO MOTH 02/24/18 [History Last Taken 03/07/18] insulin glargine U-300 conc 300 unit/mL (3 mL) subcutaneous pen (Toujeo Max U-300 SoloStar) 128 unit SQ QHS diabetes' 03/10/18 [History Last Taken Unknown] pantoprazole 40 mg tablet,delayed release 40 mg PO DAILY 06/05/21 [History Last Taken 06/12/21 06:15] ascorbate calcium (vitamin C) 500 mg tablet 500 mg PO DAILY 06/19/21 [History Last Taken Unknown] tamsulosin 0.4 mg capsule 0.4 mg PO DAILY 06/19/21 [History Last Taken Unknown] zinc 50 mg tablet 50 mg PO DAILY 06/19/21 [History Last Taken Unknown] cholecalciferol (vitamin D3) 50 mcg (2,000 unit) capsule 50 mcg PO DAILY 07/22/21 [History Last Taken Unknown] finasteride 5 mg tablet 5 mg PO DAILY 07/22/21 [History Last Taken Unknown] diphenhydramine HCl 25 mg capsule (Benadryl) 50 mg PO X1 #1 cap 12/06/21 [Rx Last Taken Unknown] prednisone 50 mg tablet 50 mg PO DAILY #3 tabs 12/06/21 [Rx Last Taken Unknown] Allergy/AdvReac Type Severity Reaction Status Date / Time Iodinated Contrast Media Allergy Rash Verified 07/22/21 11:30 [CONTRASTS] Surgical History H/O transurethral destruction of bladder lesion History of cystoscopy History of tonsillectomy and adenoidectomy Hx of colonoscopy Social History Smoking Status: Former smoker ROS ROS ED ROS Narrative A complete review of systems was performed and is negative except as documented in the history of present illness. Some specific details below. Constitutional: No recent fevers or chills. No malaise. EYE: No visual complaints or pain. ENT: No difficulty swallowing. No swelling. No pain. CV: No chest pain or palpitations. Respiratory: No dyspnea. No hemoptysis. No difficulty taking breaths. GI: Please see history of present illness. He has lower abdominal pressure and discomfort but no nausea vomiting or change in bowel habits. : See history of present illness. Musculoskeletal: No recent trauma. No back pains. Skin: No rash. Nondiaphoretic. Neuro: No weakness or numbness. Endocrine: No polyuria or polydipsia. EXAM Physical Exam Narrative Exam Narrative: CONSTITUTIONAL: Patient is nontoxic in appearance. The patient looks somewhat uncomfortable. HEENT: No notable trauma. Mucous membranes moist. EYES: No conjunctival injection. No proptosis. CARDIOVASCULAR: Regular rate. Regular rhythm. No notable murmur. No JVD. RESPIRATORY: No respiratory distress. Breathing is unlabored. No wheezes. No rhonchi. No rales. No pain with a deep breath. GASTROINTESTINAL: Obese but not distended. Bowel sounds are normal. He does appear to have some fullness over the suprapubic area but it is a little hard to ascertain. He does have some pressure there. But no rebound or guarding. GENITOURINARY: No CVA tenderness. See above regarding suprapubic pressure. MUSCULOSKELETAL: Atraumatic. No peripheral edema. No cord. No tenderness along the deep venous system. No asymmetry. NEUROLOGICAL: Patient is alert and appropriate. No focal deficit noted. SKIN: No noted rashes. No diaphoresis. PSYCHIATRIC: Patient is calm. Mood is appropriate. Const Vital Signs: 02/13/23 16:22 Temperature 98.1 F Temperature Source Temporal Pulse Rate 100 Respiratory Rate 17 Blood Pressure 142/73 H Blood Pressure Mean 96 Pulse Ox 96 Oxygen Delivery Method Room Air MDM MDM MDM Narrative Medical decision making narrative: Patient CBC shows minimal elevation white count 11.8. Patient's electrolytes showed creatinine just up a slight amount at 1.34. Glucose was okay at 114. Patient's urine showed red cells but no white cells or signs convincing sign of infection. Patient's INR was therapeutic at 2.1. After we saw the patient, the patient went to the bathroom urinated and passed what looked to be a very large stone. This was likely over 5 mm x 12 or 13 mm. After he passed this he has been urinating well and his pain is gone. He would like to go home. I think this is reasonable. He never had back or flank pain. I think he actually had some transient urinary obstruction due to this very large stone which she has now passed. I think it is appropriate to follow-up. I think we can avoid a catheter as he is now urinating well and his pain and symptom-free. I do not think he needs to continue his antibiotics. We discussed reasons to return Lab Data Labs: Laboratory Results - last 24 hr 02/13/23 02/13/23 02/13/23 16:50 16:50 17:25 WBC 11.8 H RBC 4.53 L Hgb 13.5 Hct 42.4 MCV 93.6 MCH 29.8 MCHC 31.8 L RDW Std Deviation 46.6 H RDW Coeff of Teodora 13.9 Plt Count 281 MPV 8.9 Immature Gran % (Auto) 0.500 Neut % (Auto) 64.0 Lymph % (Auto) 25.3 [place] % (Auto) 5.5 Eos % (Auto) 4.3 Baso % (Auto) 0.4 Absolute Neuts (auto) 7.6 Absolute Lymphs (auto) 2.99 Nucleated RBC % 0 PT INR Sodium 137 Potassium 4.7 Chloride 106 Carbon Dioxide 25.0 Anion Gap 6 BUN 19 H Creatinine 1.34 H Estim Creat Clear Calc 54.69 Est GFR (MDRD) Af Amer 67 Est GFR (MDRD) Non-Af 56 L BUN/Creatinine Ratio 14.2 Glucose 114 H Calcium 8.8 Urine Color Yellow Urine Clarity Sl. Cloudy Urine pH 5.0 Ur Specific [place] 1.020 Urine Protein 30 H Urine Glucose (UA) 50 H Urine Ketones Negative Urine Occult Blood 250 H Urine Nitrite Negative Urine Bilirubin Negative Urine Urobilinogen Normal Ur Leukocyte Esterase 100 H Urine RBC 50-100 SEEN Urine WBC 0-5 SEEN Ur Squamous Epith Cells 0-5 SEEN Urine Bacteria 0 SEEN Urine Mucus 0 SEEN 02/13/23 17:35 WBC RBC Hgb Hct MCV MCH MCHC RDW Std Deviation RDW Coeff of Teodora Plt Count MPV Immature Gran % (Auto) Neut % (Auto) Lymph % (Auto) [place] % (Auto) Eos % (Auto) Baso % (Auto) Absolute Neuts (auto) Absolute Lymphs (auto) Nucleated RBC % PT 23.8 H INR 2.1 Sodium Potassium Chloride Carbon Dioxide Anion Gap BUN Creatinine Estim Creat Clear Calc Est GFR (MDRD) Af Amer Est GFR (MDRD) Non-Af BUN/Creatinine Ratio Glucose Calcium Urine Color Urine Clarity Urine pH Ur Specific [place] Urine Protein Urine Glucose (UA) Urine Ketones Urine Occult Blood Urine Nitrite Urine Bilirubin Urine Urobilinogen Ur Leukocyte Esterase Urine RBC Urine WBC Ur Squamous Epith Cells Urine Bacteria Urine Mucus Discharge Plan Triage Chief Complaint: Complaint ED Provider: Brandyn Fu Dx/Rx/DC Orders Clinical Impression: Kidney stone, History of urinary retention Instructions: ED Kidney Stone, Passed Prescriptions: No Action ascorbate calcium (vitamin C) 500 mg tablet 500 mg PO DAILY zinc 50 mg tablet 50 mg PO DAILY tamsulosin 0.4 mg capsule 0.4 mg PO DAILY cholecalciferol (vitamin D3) 50 mcg (2,000 unit) capsule 50 mcg PO DAILY finasteride 5 mg tablet 5 mg PO DAILY atorvastatin 40 MG tablet 40 mg PO QHS Label Comments: cholesterol venlafaxine 150 MG capsule 150 mg PO QHS Label Comments: antidepressant metformin 1,000 MG tablet 1,000 mg PO BIDCM Label Comments: diabetes acetaminophen [Tylenol] 325 MG tablet 650 mg PO Q6H PRN PRN (Reason: Mild Pain, Fever) warfarin [Jantoven] 7.5 MG tablet 7.5 mg PO MOTH Label Comments: blood thinner Rx Instructions: will stop 5 days prior warfarin [Jantoven] 5 MG tablet 5 mg PO SUTUWEFRSA Label Comments: blood thinner Rx Instructions: will stop 5 days prior Toujeo Max U-300 SoloStar 300 UNIT/ML insulin pen 128 unit SQ QHS pantoprazole 40 mg Tablet,Delayed Release (Dr/Ec) 40 mg PO DAILY prednisone 50 mg tablet 50 mg PO DAILY Qty: 3 0RF Rx Instructions: take one13 hours before and 7 hours and [address] scan diphenhydramine HCl [Benadryl] 25 mg capsule 50 mg PO X1 Qty: 1 0RF Rx Instructions: one hour before. Primary Care Provider: John Merrill Referrals: Cristofer Troncoso MD [Med Staff - Active Staff] - 3-5 Days John Merrill DO [Primary Care Provider] - Disposition Disposition: Home, Self Care
[2023-02-13 17:04] LABS: Absolute Lymphocyte Count 2.99 X10^3/uL (0.83-4.51); Absolute Neutrophil Count 7.6 X10^3/uL (2.0-7.7); Basophil# 0.05 X10^3/uL; Basophil% 0.4 % (0-1); Eosinophil# 0.51 X10^3/uL; Eosinophils% 4.3 % (0-5); Hematocrit 42.4 % (40-54); Hemoglobin 13.5 g/dL (13.0-16.5); Lymphocyte # 2.99 X10^3/ul (0.83-4.51); Lymphocyte % 25.3 % (19-41); Mean Corp Hgb Conc 31.8 g/dL (32-36); Mean Corpuscular Hgb 29.8 pg (27.0-32.0); Mean Corpuscular Volume 93.6 fL (80-94); Mean Platelet Vol. 8.9 fl (6.2-12.0); Monocyte# 0.65 X10^3/uL; Monocyte% 5.5 % (0-10); NRBC Flagged by Analyzer 0 % (0-5); Neutrophil # 7.56 X10^3/uL (2.7-7.7); Platelet Count 281 K/mm3 (150-450); RBC Distribution Width CV 13.9 % (11.6-14.6); RBC Distribution Width SD 46.6 fl (35.1-43.9); Red Blood Count 4.53 M/mm3 (4.6-6.2); White Blood Count 11.8 K/mm3 (4.4-11.0)
[2023-02-13 17:18] LABS: Anion Gap 6 (5-15); BUN 19 mg/dL (7-18); BUN/Creat Ratio 14.2 RATIO (10-20); Calcium,Total 8.8 mg/dL (8.5-10.1); Chloride 106 mmol/L (98-107); Creatinine, Serum 1.34 mg/dL (0.70-1.30); EST Glomerular Filtration Rate 56 mL/min (>60); Est Glom Filt Rate - Afr Amer 67 mL/min (>60); Estimated Creatinine Clearance 54.69 ml/min; Glucose 114 mg/dL (74-106); Potassium 4.7 mmol/L (3.5-5.1); Sodium Level 137 mmol/L (136-145)
[2023-02-13 17:41] LABS: Bacteria 0 SEEN /hpf (None Seen); Mucous, Urine 0 SEEN /hpf (<or=2+)
[2023-02-13 17:48] LABS: Color, Urine Yellow (Yellow); Glucose, Dipstick 50 mg/dl (Normal); Ketone-Dipstick Negative (Negative); Leukocyte Esterase-Dipstick 100 /ul (Negative); Nitrite-Dipstick Negative (Negative); Occult Blood-Urine 250 /ul (Negative); Protein-Dipstick 30 mg/dl (Negative); Urine Bilirubin Dipstick Negative (Negative); Urine Clarity Sl. Cloudy (Clear); Urine Urobilinogen Normal (Normal)
[2023-02-13 17:57] LABS: International Normalized Ratio 2.1; Prothrombin Time (Protime)PT. 23.8 SECONDS (11.7-14.9)
[2023-02-13 17:59] LABS: Red Blood Cells-Urine 50-100 SEEN /hpf (0-5); Squamous Epithelial Cells - UA 0-5 SEEN /hpf (0-5); White Blood Cells 0-5 SEEN /hpf (0-5)
--- NOTE | 2023-02-13 19:13 | CM.ED ---
Social Work SW introduced self and role to patient. SW discussed advance directives with patient. Patient and report they have HCPOA and Living Will documents at home and will bring them in when able. Shraddha De La Rosa [employer], [employer]LECTION TEAM LEAD
[2023-02-13 19:33] VITALS: BP 138/89; PULSE 87; RESP 18; O2SAT 95
== END 2023-02-13 19:33 | disposition home or self-care (01) ==
PROVIDERS: Emergency Provider Emergency Medicine; PCP Preventive Medicine Occupational Medicine; Visit Provider Emergency Medicine
DX: N20.0 Calculus of kidney (principal); Z79.4 Long term (current) use of insulin; E11.9 Type 2 diabetes mellitus without complications; E78.5 Hyperlipidemia, unspecified; R33.9 Retention of urine, unspecified; Z87.891 Personal history of nicotine dependence; Z85.51 Personal history of malignant neoplasm of bladder; N40.0 Benign prostatic hyperplasia without lower urinary tract symptoms; Z79.899 Other long term (current) drug therapy; Z79.84 Long term (current) use of oral hypoglycemic drugs; F41.9 Anxiety disorder, unspecified; F32.A Depression, unspecified; Z79.01 Long term (current) use of anticoagulants; Z86.73 Personal history of transient ischemic attack (TIA), and cerebral infarction without residual deficits; K21.9 Gastro-esophageal reflux disease without esophagitis
CPT/HCPCS: 80048; 81001; 82360; 85025; 85610; 87086; 87088; 99282

== ENCOUNTER 2023-02-28 13:37 | Emergency (ER) | payer MEDICARE, SELFPAY ==
[2023-02-28 13:38] VITALS: BP 112/66; PULSE 99; RESP 16; TEMP 36.6; O2SAT 94; BMI 34.0
--- NOTE | 2023-02-28 14:03 | EKG12_ITS ---
Test Reason : SOB/DIZZINESS Blood Pressure : / mmHG Vent. Rate : 094 BPM Atrial Rate : 094 BPM P-R Int : 160 ms QRS Dur : 086 ms QT Int : 344 ms P-R-T Axes : 029 021 059 degrees QTc Int : 430 ms Normal sinus rhythm Low voltage QRS Borderline ECG Confirmed by RAYMON GRAY, AMARILIS ([id number]), film or videotape editor ROBERTH ARELLANO ([id number]) on 03/02/2023 12:37:00 PM Referred By: Confirmed By:AMARILIS ENNIS MD
--- NOTE | 2023-02-28 14:03 | RAD_ITS ---
INDICATION: chest pain EXAMINATION/TECHNIQUE: X-RAY - XR Chest 1 View COMPARISON: No prior examinations are available for comparison. FINDINGS: LINES/DEVICES: None. LUNGS: Mild elevation of the right hemidiaphragm. No focal infiltrate is seen. Minimal stranding/atelectasis in the left lower lung. No evidence of pleural effusions. MEDIASTINUM AND CARDIOVASCULAR STRUCTURES: Cardiac silhouette not enlarged. Central airways and mediastinal contour are unremarkable. BONES AND SOFT TISSUES: Unremarkable. RAD/Chest 1 View (Portable) IMPRESSION: Minimal atelectatic changes in the left lower lung. Electronically Signed: Pérez Calvo MD at 14:31 EDT ,
--- NOTE | 2023-02-28 14:03 | CT_ITS ---
INDICATION: ataxia EXAMINATION: CT BRAIN WITH CONTRAST TECHNIQUE: Noncontrast axial images were obtained of the brain. Subsequently, routine carotid CT angiogram protocol was performed without and with IV contrast. In addition, images were obtained of the [place]. NASCET criteria using the distal ICAs for comparison were used for evaluation of stenoses. 3D reconstructions were reviewed. A radiation dose optimization technique was used for this scan. IV Contrast dosage and agent: COMPARISON: FINDINGS: --CT BRAIN: BRAIN PARENCHYMA: No intracranial mass, mass effect or midline shift. No hemorrhage, territorial infarct or acute ischemia. Lacunar infarcts in the thalamic nuclei bilaterally. Microvascular ischemic changes. Mild atrophy. --CTA NECK: AORTIC ARCH AND BRANCHES: Normal anatomy, patent. RIGHT CCA: No occlusion, significant stenosis or dissection. RIGHT ICA: No occlusion, significant stenosis or dissection. LEFT CCA: No occlusion, significant stenosis or dissection. LEFT ICA: No occlusion, significant stenosis or dissection. RIGHT VERTEBRAL ARTERY: No occlusion, significant stenosis or dissection. LEFT VERTEBRAL ARTERY: No occlusion, significant stenosis or dissection. NECK SOFT TISSUES: Unremarkable. --CTA HEAD: --Anterior circulation: ICAs: No significant stenosis at the intracranial/visualized segments. ACAs: No significant stenosis at the visualized segments. ACOM: Present. MCAs: No significant stenosis at the visualized segments. --Posterior circulation: PCOMs: Normal right, nonvisualized on the left. tinter photograph: No significant stenosis at the visualized segments. BASILAR ARTERY: No significant stenosis. VERTEBRAL ARTERIES: No significant stenosis at the intradural/visualized segments. No evidence of intracranial aneurysm or vascular malformation. CT/CTA Head AND Neck W/ Contrast IMPRESSION: Negative CT Brain, CTA Carotid, and CTA Brain. Electronically Signed: Scarlet Wheatley MD at 17:21 EDT Reading Location ID and State: [id number] / Tel , Service support ,
--- NOTE | 2023-02-28 14:11 | EX.ED.DYSGE1 ---
HPI <THEE Munoz - Last Filed: 02/28/23 17:55> History of Present Illness Chief Complaint: Alt LOC Narrative Narrative: Patient is a 72-year-old male with history of CVA, CAD, hyperlipidemia, diabetes, obesity, history of bladder cancer who presents the emergency department for an episode of altered mental status, dizziness, shaking. Patient was asked by his to get the brand off the top shelf, patient states that he was lifting his hands up, he felt dizzy and then everything went black, per the , she was yelling at him because he was not moving, he then lowered himself down to the floor. Secondary to his stroke history he is here for evaluation. Patient is emotional here, patient states he still feels dizzy and unsteady however he is acting appropriate. Per the , patient is back to baseline. She states that he is always unsteady on his feet. Patient denies any injuries from today. 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 Migraine headache Obesity Shortness of breath on exertion Stroke/cerebrovascular accident Syncope Wears glasses Home Medications atorvastatin 40 mg tablet 40 mg PO QHS 09/29/14 [History Last Taken 06/12/17 21:00] metformin 1,000 mg tablet 1,000 mg PO BIDCM 09/29/14 [History Last Taken 06/13/17 05:00] venlafaxine 150 mg capsule,extended release 24 hr 150 mg PO QHS 09/29/14 [History Last Taken 06/12/17 21:00] acetaminophen 325 mg tablet (Tylenol) 650 mg PO Q6H PRN PRN Mild Pain, Fever 07/14/17 [History Last Taken Unknown] warfarin 5 mg tablet (Jantoven) 5 mg PO MOWEFR 02/24/18 [History Last Taken 06/07/21] warfarin 7.5 mg tablet (Jantoven) 7.5 mg PO SUTUTHSA 02/24/18 [History Last Taken 03/07/18] pantoprazole 40 mg tablet,delayed release 40 mg PO DAILY 06/05/21 [History Last Taken 06/12/21 06:15] tamsulosin 0.4 mg capsule 0.4 mg PO DAILY 06/19/21 [History Last Taken Unknown] cholecalciferol (vitamin D3) 50 mcg (2,000 unit) capsule 50 mcg PO DAILY 07/22/21 [History Last Taken Unknown] finasteride 5 mg tablet 5 mg PO DAILY 07/22/21 [History Last Taken Unknown] insulin human U-100 NPH-regulr 70-30 mix 100 unit/mL subcutaneous susp (Humulin 70/30 U-100 Insulin) subcut 02/28/23 [History Last Taken Unknown] Allergy/AdvReac Type Severity Reaction Status Date / Time Iodinated Contrast Media Allergy Rash Verified 02/28/23 13:41 [CONTRASTS] Surgical History H/O transurethral destruction of bladder lesion History of cystoscopy History of tonsillectomy and adenoidectomy Hx of colonoscopy Social History Smoking Status: Former smoker ROS <THEE Munoz - Last Filed: 02/28/23 17:55> ROS ED ROS Narrative Constitutional: Negative for fever, chills, weight loss, weakness Eyes: Negative for vision loss, vision change, double vision ENT: Negative for any sore throat, ear pain, congestion Cardiovascular: Negative for any chest pain, tightness, palpitations Respiratory: Negative for any cough, sputum production, hemoptysis, dyspnea, dyspnea on exertion, orthopnea Gastrointestinal: Negative for any abdominal pain, nausea, vomiting, diarrhea, constipation, blood in stool, blood in vomit : Negative for any urinary frequency, dysuria, retention, blood in urine Muscle skeletal: Negative for any muscle joint pain, stiffness, myalgias, arthralgias, neck pain, back pain Neurological: Negative for any headache, numbness or tingling. Positive for near syncope, dizziness Skin: Negative for any rashes, lumps, itching, abrasions, lacerations Psychiatric: Negative for any depression, anxiety, stress, suicidal ideation, homicidal ideation Hematologic: Negative for any easy bruising, excessive bruising, easy bleeding Allergies: Negative for any eczema, hives, rash EXAM <THEE Munoz - Last Filed: 02/28/23 17:55> Physical Exam Narrative Exam Narrative: Vital signs reviewed. Patient alert and orient x4, patient is acting appropriate. Answering all questions appropriately. Per , is acting baseline HEET: Head normocephalic atraumatic, TMs clear bilaterally. Posterior pharynx is clear, moist mucous membranes. Nares clear bilaterally. Neck: Supple with no lymphadenopathy or tenderness. No signs of meningismus, negative jolt sign. Cardiac: Regular rate and rhythm no murmurs gallops or rubs, equal peripheral pulses bilaterally. Respiratory: Lungs clear to auscultation bilaterally. No chest tenderness. Abdomen: Soft, nontender, nondistended. No abdominal bruit or pulsatile masses. No hepatosplenomegaly Extremities: No peripheral edema, no signs of gross trauma or deformity. Active full range of motion of all extremities. Neuro: Cranial nerves II through XII intact, no focal neurological deficits. Neuro exam shows no weakness. NIH stroke scale completed, total score of 1 secondary to ataxia however this was minimal. Patient did have some slight horizontal nystagmus however this was brief 2 to 3 seconds. Patient was ambulated, patient was unstable initially however had no ataxic gait. Skin: Clean dry and intact with no rash, purpura, petechiae, vesicles or pustules. Backs/flank: No CVA tenderness, no midline spinal tenderness, no deformity. Psych: Normal mood and affect. No SI, HI or acute psychosis. Const Vital Signs: 02/28/23 13:38 02/28/23 13:56 02/28/23 14:09 Temperature 97.8 F Temperature Source Temporal Pulse Rate 99 Pulse Rate [Lying] Pulse Rate [Sitting (for 1 minute prior to obtaining)] Pulse Rate [Standing (for 1 minute prior to obtaining)] Respiratory Rate 16 Respiratory Effort Normal Non-Labored Respiratory Pattern Normal Blood Pressure 112/66 Blood Pressure [Lying] Blood Pressure [Sitting (for 1 minute prior to obtaining)] Blood Pressure [Standing (for 1 minute prior to obtaining)] Blood Pressure Mean 81 Blood Pressure Mean [Lying] Blood Pressure Mean [Sitting (for 1 minute prior to obtaining)] Blood Pressure Mean [Standing (for 1 minute prior to obtaining)] Pulse Ox 94 Oxygen Delivery Method Room Air Room Air 02/28/23 15:24 02/28/23 15:24 02/28/23 17:29 Temperature Temperature Source Pulse Rate 93 95 Pulse Rate [Lying] 92 Pulse Rate [Sitting (for 1 minute prior to obtaining)] 97 Pulse Rate [Standing (for 1 minute prior to obtaining)] 100 Respiratory Rate 16 15 Respiratory Effort Respiratory Pattern Blood Pressure 134/70 H 142/70 H Blood Pressure [Lying] 119/71 Blood Pressure [Sitting (for 1 minute prior to obtaining)] 116/73 Blood Pressure [Standing (for 1 minute prior to obtaining)] 102/67 Blood Pressure Mean 91 94 Blood Pressure Mean [Lying] 87 Blood Pressure Mean [Sitting (for 1 minute prior to obtaining)] 87 Blood Pressure Mean [Standing (for 1 minute prior to obtaining)] 78 Pulse Ox 96 95 Oxygen Delivery Method Room Air Room Air Positive well nourished and well developed General Appearance ED: well developed <Dr. Jj Kapoor, DO - Last Filed: 02/28/23 16:08> Physical Exam Const Vital Signs: 02/28/23 13:38 02/28/23 13:56 02/28/23 14:09 Temperature 97.8 F Temperature Source Temporal Pulse Rate 99 Pulse Rate [Lying] Pulse Rate [Sitting (for 1 minute prior to obtaining)] Pulse Rate [Standing (for 1 minute prior to obtaining)] Respiratory Rate 16 Respiratory Effort Normal Non-Labored Respiratory Pattern Normal Blood Pressure 112/66 Blood Pressure [Lying] Blood Pressure [Sitting (for 1 minute prior to obtaining)] Blood Pressure [Standing (for 1 minute prior to obtaining)] Blood Pressure Mean 81 Blood Pressure Mean [Lying] Blood Pressure Mean [Sitting (for 1 minute prior to obtaining)] Blood Pressure Mean [Standing (for 1 minute prior to obtaining)] Pulse Ox 94 Oxygen Delivery Method Room Air Room Air 02/28/23 15:24 02/28/23 15:24 02/28/23 17:29 Temperature Temperature Source Pulse Rate 93 95 Pulse Rate [Lying] 92 Pulse Rate [Sitting (for 1 minute prior to obtaining)] 97 Pulse Rate [Standing (for 1 minute prior to obtaining)] 100 Respiratory Rate 16 15 Respiratory Effort Respiratory Pattern Blood Pressure 134/70 H 142/70 H Blood Pressure [Lying] 119/71 Blood Pressure [Sitting (for 1 minute prior to obtaining)] 116/73 Blood Pressure [Standing (for 1 minute prior to obtaining)] 102/67 Blood Pressure Mean 91 94 Blood Pressure Mean [Lying] 87 Blood Pressure Mean [Sitting (for 1 minute prior to obtaining)] 87 Blood Pressure Mean [Standing (for 1 minute prior to obtaining)] 78 Pulse Ox 96 95 Oxygen Delivery Method Room Air Room Air [facility] <THEE Munoz - Last Filed: 02/28/23 17:55> [facility] Lab Data Attestation: I reviewed the patient's lab results. Labs: Laboratory Results - last 24 hr 02/28/23 02/28/23 13:53 16:30 WBC 11.4 H RBC 4.80 Hgb 14.5 Hct 45.0 MCV 93.8 MCH 30.2 MCHC 32.2 RDW Std Deviation 47.2 H RDW Coeff of Teodora 13.8 Plt Count 327 MPV 9.1 Immature Gran % (Auto) 0.500 Neut % (Auto) 63.4 Lymph % (Auto) 24.8 [place] % (Auto) 6.7 Eos % (Auto) 4.1 Baso % (Auto) 0.5 Absolute Neuts (auto) 7.2 Absolute Lymphs (auto) 2.83 Nucleated RBC % 0 PT 27.1 H INR 2.5 Sodium 136 Potassium 4.7 Chloride 104 Carbon Dioxide 25.0 Anion Gap 7 BUN 30 H Creatinine 1.79 H Estim Creat Clear Calc 40.94 Est GFR (MDRD) Af Amer 48 L Est GFR (MDRD) Non-Af 40 L BUN/Creatinine Ratio 16.8 Glucose 127 H Calcium 9.3 Troponin I High Sens 6 4 Radiography Diagnostic Testing: Clinical Impression(s) from Imaging Studies Chest X-Ray 02/28/23 14:03 IMPRESSION: Minimal atelectatic changes in the left lower lung. Electronically Signed: Pérez Calvo MD at 14:31 EDT , Head/Neck CTA 02/28/23 14:03 IMPRESSION: Negative CT Brain, CTA Carotid, and CTA Brain. Electronically Signed: Scarlet Wheatley MD at 17:21 EDT Reading Location ID and State: [id number] / Tel , Service support , EKG Normal sinus rhythm: Attestation: I personally reviewed and interpreted this EKG as follows: Interpretation: Sinus Rhythm Comments: EKG shows normal sinus rhythm, rate of 94 bpm, MI interval 160 ms, QRS duration 86 ms, no acute ST elevation, no acute infarct noted. Treatment and Re-Evaluation :: Patient arrives in no obvious distress, patient states to feel dizzy and unsteady when walking, patient presents to the emergency department after having a near syncopal episode while reaching to grab a loaf of bread from the cupboard. Patient did receive a full work-up concerning for CVA/TIA. Patient's NIH stroke scale was 1 secondary to minor ataxia. Patient however does still feel weak, and dizzy. Patient's chest x-ray concerning for a pneumonia showed no acute process. Patient's laboratory values showed a leukocytosis white blood count of 11.4, patient's PTT was elevated 27 however INR is 2.5 which is acceptable for him being on Coumadin. Patient's creatinine is 1.79, this has been increasing since January 13, 2023 when it was 1.3, on 13 February it was 1.34, now it is 1.79. Patient's GFR is 40. BUN of 30. Patient's initial troponin was 6, repeat was 4. Patient did receive 500 cc of normal saline, orthostatic vital signs were completed and negative. Patient still feels very unsteady on his feet, secondary to this, the elevated creatinine, believe the patient should be observed for the dizziness, acute kidney injury, unsteadiness on his feet. Patient will receive a CTA of the head and neck with IV contrast, however I believe the patient would best served as an admission. Patient's repeat troponin was negative. Patient be admitted. <Dr. Jj Kapoor, DO - Last Filed: 02/28/23 16:08> [facility] Narrative Medical decision making narrative: I have personally performed a face to face assessment of the patient and have reviewed the SUZANNA Note. I performed a substantive portion of the visit including all aspects of the following. My ocampo findings include: History is [patient presents with an episode while reaching for a loaf of bread where he became less responsive and states he started twitching. She pulled up a chair to place behind him so he could sit down any kind slumped to the floor and was not responding to her. Patient afterwards felt somewhat off balance. Currently he states he feels much better and feels like he is back to his baseline. He does have history of prior stroke. He is on Coumadin and has been taking it regularly. Patient has short-term memory loss related to his prior strokes per . Patient denies chest pain or headache or shortness of breath. He denies recent illness.] Exam is [HEENT-PERRLA, EOMI. Cranial nerves II through XII grossly intact. TMs clear. Mucous membranes moist. No adenopathy. Cardiovascular-regular rate and rhythm without murmur or ectopy Lungs-clear to auscultation, chest wall stable without crepitus or subcu emphysema Abdomen-normoactive bowel sounds, soft, nontender, no rebound or rigidity, no peritoneal signs. Neuro exam-patient has minimal ataxia with the right arm. No focal weakness noted. NIH stroke scale is a 1 for the ataxia. Extremities-intact ?4, normal range of motion, normal pulses, atraumatic] Medical Decison Making [patient presents with episode of possible syncope versus mental status change that occurred rather suddenly. He does have history of prior stroke and he is on Coumadin. Patient not a thrombolytic candidate and clinically I do not think he is having a stroke. states he has been more quiet over the last 2 days and typically gets that way when he does not feel well. Basic lab work-up showed an elevated white count 11.4 with a hemoglobin of 14 and platelet count of 327. Chemistries unremarkable. Patient does have an elevated creatinine of 1.79. Orthostatic vital signs were negative. Urinalysis pending. CTA of head and neck obtained results of which are pending. I did reevaluate patient and he still feeling somewhat lightheaded with standing. Patient will likely require admission for dizziness and syncope and acute kidney injury. If symptoms persist may need further imaging such as possibly MRI to evaluate for possible central cause of dizziness.] Other additions or changes: [None] Lab Data Labs: Laboratory Results - last 24 hr 02/28/23 02/28/23 13:53 16:30 WBC 11.4 H RBC 4.80 Hgb 14.5 Hct 45.0 MCV 93.8 MCH 30.2 MCHC 32.2 RDW Std Deviation 47.2 H RDW Coeff of Teodora 13.8 Plt Count 327 MPV 9.1 Immature Gran % (Auto) 0.500 Neut % (Auto) 63.4 Lymph % (Auto) 24.8 [place] % (Auto) 6.7 Eos % (Auto) 4.1 Baso % (Auto) 0.5 Absolute Neuts (auto) 7.2 Absolute Lymphs (auto) 2.83 Nucleated RBC % 0 PT 27.1 H INR 2.5 Sodium 136 Potassium 4.7 Chloride 104 Carbon Dioxide 25.0 Anion Gap 7 BUN 30 H Creatinine 1.79 H Estim Creat Clear Calc 40.94 Est GFR (MDRD) Af Amer 48 L Est GFR (MDRD) Non-Af 40 L BUN/Creatinine Ratio 16.8 Glucose 127 H Calcium 9.3 Troponin I High Sens 6 4 Radiography Diagnostic Testing: Clinical Impression(s) from Imaging Studies Chest X-Ray 02/28/23 14:03 IMPRESSION: Minimal atelectatic changes in the left lower lung. Electronically Signed: Pérez Calvo MD at 14:31 EDT , Head/Neck CTA 02/28/23 14:03 IMPRESSION: Negative CT Brain, CTA Carotid, and CTA Brain. Electronically Signed: Scarlet Wheatley MD at 17:21 EDT Reading Location ID and State: [id number] / Tel , Service support , 1 view chest x-ray obtained interpreted by myself as no evidence of infiltrate or pneumothorax or acute disease process. Radiology in agreement. Discharge Plan Triage Chief Complaint: Alt LOC ED Midlevel Provider: Jarvis Segura ED Provider: Jj Kapoor Dx/Rx/DC Orders Clinical Impression: Acute kidney injury, Dizziness, Syncope Prescriptions: No Action tamsulosin 0.4 mg capsule 0.4 mg PO DAILY cholecalciferol (vitamin D3) 50 mcg (2,000 unit) capsule 50 mcg PO DAILY finasteride 5 mg tablet 5 mg PO DAILY atorvastatin 40 MG tablet 40 mg PO QHS Patient Comments: cholesterol venlafaxine 150 MG capsule 150 mg PO QHS Patient Comments: antidepressant metformin 1,000 MG tablet 1,000 mg PO BIDCM Patient Comments: diabetes acetaminophen [Tylenol] 325 MG tablet 650 mg PO Q6H PRN PRN (Reason: Mild Pain, Fever) warfarin [Jantoven] 7.5 MG tablet 7.5 mg PO SUTUTHSA Patient Comments: blood thinner Rx Instructions: will stop 5 days prior warfarin [Jantoven] 5 MG tablet 5 mg PO MOWEFR Patient Comments: blood thinner Rx Instructions: will stop 5 days prior pantoprazole 40 mg Tablet,Delayed Release (Dr/Ec) 40 mg PO DAILY Humulin 70/30 U-100 Insulin 100 unit/mL (70-30) suspension SUBCUT Primary Care Provider: John Merrill Referrals: John Merrill DO [Primary Care Provider] - Disposition Disposition: Acute Care Hospital [facility]
[2023-02-28 14:13] LABS: Absolute Lymphocyte Count 2.83 X10^3/uL (0.83-4.51); Absolute Neutrophil Count 7.2 X10^3/uL (2.0-7.7); Basophil# 0.06 X10^3/uL; Basophil% 0.5 % (0-1); Eosinophil# 0.47 X10^3/uL; Eosinophils% 4.1 % (0-5); Hemoglobin 14.5 g/dL (13.0-16.5); Lymphocyte # 2.83 X10^3/ul (0.83-4.51); Lymphocyte % 24.8 % (19-41); Mean Corp Hgb Conc 32.2 g/dL (32-36); Mean Corpuscular Hgb 30.2 pg (27.0-32.0); Mean Corpuscular Volume 93.8 fL (80-94); Mean Platelet Vol. 9.1 fl (6.2-12.0); Monocyte# 0.76 X10^3/uL; Monocyte% 6.7 % (0-10); NRBC Flagged by Analyzer 0 % (0-5); Neutrophil # 7.23 X10^3/uL (2.7-7.7); Neutrophil % 63.4 % (47-70); Platelet Count 327 K/mm3 (150-450); RBC Distribution Width CV 13.8 % (11.6-14.6); RBC Distribution Width SD 47.2 fl (35.1-43.9); White Blood Count 11.4 K/mm3 (4.4-11.0)
[2023-02-28 14:33] LABS: International Normalized Ratio 2.5; Prothrombin Time (Protime)PT. 27.1 SECONDS (11.7-14.9)
[2023-02-28 14:41] LABS: Anion Gap 7 (5-15); BUN 30 mg/dL (7-18); BUN/Creat Ratio 16.8 RATIO (10-20); Calcium,Total 9.3 mg/dL (8.5-10.1); Chloride 104 mmol/L (98-107); Creatinine, Serum 1.79 mg/dL (0.70-1.30); EST Glomerular Filtration Rate 40 mL/min (>60); Est Glom Filt Rate - Afr Amer 48 mL/min (>60); Estimated Creatinine Clearance 40.94 ml/min; Glucose 127 mg/dL (74-106); Potassium 4.7 mmol/L (3.5-5.1); Sodium Level 136 mmol/L (136-145); Troponin-I HS (w/2H Reflex) 6 pg/mL (3.0-78.0)
[2023-02-28] MEDS: MethylPREDNISolone 125 MG/2 ML Vial IV (14:43)
[2023-02-28] MEDS: DiphenhydrAMINE 50 MG/ML Syringe 25 MG IV (14:43)
[2023-02-28 15:24] VITALS: BP 102/67; BP 116/73; BP 119/71; BP 134/70; PULSE 100; PULSE 92; PULSE 93; PULSE 97; RESP 16; O2SAT 96
[2023-02-28 16:07] LABS: Reflex Troponin-HS? (from REC) Y
[2023-02-28 16:59] LABS: Troponin-I HS 4 pg/mL (3.0-78.0)
[2023-02-28 17:29] VITALS: BP 142/70; PULSE 95; RESP 15; O2SAT 95
--- NOTE | 2023-02-28 17:40 | NURSING ---
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
--- NOTE | 2023-02-28 17:59 | NURSING ---
PCU OBS YADIRA NEAR SYNCOPE, ACUTE KIDNEY INJURY, DIZZINESS
--- NOTE | 2023-02-28 18:06 | DCINST_ITS ---
Discharge Instructions Diet Discharge Diet: 2000 Calorie Control Diet Dressing / Incision Call your doctor if you observe: - (unresponsiveness. ) Follow Up Care Test Results: Test results from this visit will be discussed in further detail at your follow- up appointment, if applicable. Discharge Plan Triage Chief Complaint: Dizziness ED Midlevel Provider: Jarvis Segura ED Provider: Jj Kapoor Dx/Rx/DC Orders Clinical Impression: Acute kidney injury, Dizziness, Syncope Prescriptions: New meclizine 25 mg tablet 25 mg PO TID PRN (Reason: dizziness) Qty: 20 0RF Continued tamsulosin 0.4 mg capsule 0.4 mg PO DAILY cholecalciferol (vitamin D3) 50 mcg (2,000 unit) capsule 50 mcg PO DAILY finasteride 5 mg tablet 5 mg PO DAILY atorvastatin 40 MG tablet 40 mg PO QHS Patient Comments: cholesterol venlafaxine 150 MG capsule 150 mg PO QHS Patient Comments: antidepressant metformin 1,000 MG tablet 1,000 mg PO BIDCM Patient Comments: diabetes acetaminophen [Tylenol] 325 MG tablet 650 mg PO Q6H PRN PRN (Reason: Mild Pain, Fever) warfarin [Jantoven] 7.5 MG tablet 7.5 mg PO SUTUTHSA Patient Comments: blood thinner Rx Instructions: will stop 5 days prior warfarin [Jantoven] 5 MG tablet 5 mg PO MOWEFR Patient Comments: blood thinner Rx Instructions: will stop 5 days prior pantoprazole 40 mg Tablet,Delayed Release (Dr/Ec) 40 mg PO DAILY Humulin 70/30 U-100 Insulin 100 unit/mL (70-30) suspension SUBCUT Other Ambulatory Orders: Physical Therapy Evaluation (Routine) Location: None Selected Ordered By: Dr. Cody Rodriguez Primary Care Provider: John Merrill Referrals: John Merrill DO [Primary Care Provider] - 1-2 Weeks Activity Restrictions/Additional Instructions: I suspect he may have had vertigo, inner ear vertigo also known as benign paroxysmal positional vertigo. If you do experience this in the future you have a prescription for meclizine to take. I also recommend that you follow-up with physical therapy for vestibular rehab. Also recommend you use a device walking around, such as a walker or rollator to ensure that you are safe. Disposition Disposition: Home, Self Care
--- NOTE | 2023-02-28 18:11 | PCM.CONS.GEN ---
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 Usually are self-limiting. I do not feel that this was an arrhythmia nor do I feel that this was a posterior circulation stroke. Symptoms began suddenly and resolved rather quickly. Patient did have an episode where he was reportedly nonresponsive. 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 Explained this to his family and expressed understanding. I told him that I cannot definitively diagnosis as BPPV but given the rapid onset and fast resolution and recurrent nature it seems suggestive of that. I have recommended that he take meclizine as needed if these episodes do occur in the future but given that these do occur rather frequently, I do recommend he have physical therapy for vestibular rehab. PLAN: Plan I was asked to see the patient for admission. I do not feel the patient needs to be admitted. I discussed my findings from physical exam with the patient's and daughter. To touch base with him about his creatinine elevation at 1.79. Patient did recently passed a kidney stone so there may be some postobstructive component for that. Discharge I recommended they follow-up with his primary care physician in the next 1 to 2 weeks to have follow-up labs. I did advise him if he does have similar episode to certainly be evaluated. They are comfortable, as well as the patient about going home. I have taken liberty of doing the discharge from the emergency room. HPI Consult Data Date of Consult: 02/28/23 HPI Narrative Reason for Consultation: dizziness HPI Narrative: DOREEN PINZON, is a 72 M who presents with dizziness. Patient was in his kitchen and went to grab some bread that was an upper shelf and then started feeling dizzy. His was trying to interact with him but he did not respond. She brought a chair over for him and he lowered himself to the ground clumsily and did not injure himself. Patient eventually came to. Patient was brought to the hospital and evaluated the emergency room. Patient had a creatinine that was 1.79. Patient did undergo a CTA of the head neck that was unremarkable. Was contacted from the hospital service to evaluate the patient for admission. When I went to see the patient, he states he feels fine and has no further dizziness. His states that he has issues with memory but does state that he gets these dizzy spells about once a week. But this episode today was more severe. 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 Migraine headache Obesity Shortness of breath on exertion Stroke/cerebrovascular accident Syncope Wears glasses Home Medications atorvastatin 40 mg tablet 40 mg PO QHS 09/29/14 [History Last Taken 06/12/17 21:00] metformin 1,000 mg tablet 1,000 mg PO BIDCM 09/29/14 [History Last Taken 06/13/17 05:00] venlafaxine 150 mg capsule,extended release 24 hr 150 mg PO QHS 09/29/14 [History Last Taken 06/12/17 21:00] acetaminophen 325 mg tablet (Tylenol) 650 mg PO Q6H PRN PRN Mild Pain, Fever 07/14/17 [History Last Taken Unknown] warfarin 5 mg tablet (Jantoven) 5 mg PO MOWEFR 02/24/18 [History Last Taken 06/07/21] warfarin 7.5 mg tablet (Jantoven) 7.5 mg PO SUTUTHSA 02/24/18 [History Last Taken 03/07/18] pantoprazole 40 mg tablet,delayed release 40 mg PO DAILY 06/05/21 [History Last Taken 06/12/21 06:15] tamsulosin 0.4 mg capsule 0.4 mg PO DAILY 06/19/21 [History Last Taken Unknown] cholecalciferol (vitamin D3) 50 mcg (2,000 unit) capsule 50 mcg PO DAILY 07/22/21 [History Last Taken Unknown] finasteride 5 mg tablet 5 mg PO DAILY 07/22/21 [History Last Taken Unknown] insulin human U-100 NPH-regulr 70-30 mix 100 unit/mL subcutaneous susp (Humulin 70/30 U-100 Insulin) subcut 02/28/23 [History Last Taken Unknown] meclizine 25 mg tablet 25 mg PO TID PRN dizziness #20 tabs 07/01/23 [Rx Last Taken Unknown] Allergy/AdvReac Type Severity Reaction Status Date / Time Iodinated Contrast Media Allergy Rash Verified 02/28/23 13:41 [CONTRASTS] no significant family history Surgical History H/O transurethral destruction of bladder lesion History of cystoscopy History of tonsillectomy and adenoidectomy Hx of colonoscopy Social History Smoking Status: Former smoker ROS ROS Narrative All review of systems were negative except as mentioned above in the history of present illness and the other review of systems. Physical Exam Const alert and no apparent distress HEENT normocephalic, head/scalp atraumatic and hearing grossly normal bilaterally Eyes PERRL and EOMs intact bilaterally Neck no lymphadenopathy Neck Narrative: No thyromegaly Resp normal respiratory effort, no retractions, no use of accessory muscles and clear to auscultation bilaterally Cardio regular rate, regular rhythm, S1 normal heart sound and S2 normal heart sound GI normal to inspection, nondistended, normoactive bowel sounds, soft to palpation, non-tender, non-distended and hepatosplenomegaly Extremity normal to inspection and full ROM Neuro oriented x3, CN's II-XII intact bilaterally, moves all extremities and no focal motor deficits Neuro Narrative: Gait was measured but steady. Patient was contact-guard assist without any issues. Sensorium / Orientation: awake and alert Coordination / Balance: [id number] test normal Psych affect normal Lab / Micro Data Attestation: I reviewed the patient's lab results. 02/28/23 13:53 02/28/23 13:53 Labs: Laboratory Results - last 24 hr 02/28/23 13:53: WBC 11.4 H, RBC 4.80, Hgb 14.5, Hct 45.0, MCV 93.8, MCH 30.2, MCHC 32.2, RDW Std Deviation 47.2 H, RDW Coeff of Teodora 13.8, Plt Count 327, MPV 9.1, Immature Gran % (Auto) 0.500, Neut % (Auto) 63.4, Lymph % (Auto) 24.8, Todd % (Auto) 6.7, Eos % (Auto) 4.1, Baso % (Auto) 0.5, Absolute Neuts (auto) 7.2, Absolute Lymphs (auto) 2.83, Nucleated RBC % 0, PT 27.1 H, INR 2.5, Sodium 136, Potassium 4.7, Chloride 104, Carbon Dioxide 25.0, Anion Gap 7, BUN 30 H, Creatinine 1.79 H, Estim Creat Clear Calc 40.94, Est GFR (MDRD) Af Amer 48 L, Est GFR (MDRD) Non-Af 40 L, BUN/Creatinine Ratio 16.8, Glucose 127 H, Calcium 9.3, Troponin I High Sens 6 02/28/23 16:30: Troponin I High Sens 4 EKG Initial EKG: Attestation: I personally reviewed and interpreted this EKG as follows: Prior EKG tracings: available for review EKG Rhythm Intrepretation: Sinus Rhythm Radiology Impression Chest X-Ray 02/28/23 14:03 IMPRESSION: Minimal atelectatic changes in the left lower lung. Electronically Signed: Pérez Calvo MD at 14:31 EDT , Head/Neck CTA 02/28/23 14:03 IMPRESSION: Negative CT Brain, CTA Carotid, and CTA Brain. Electronically Signed: Scarlet Wheatley MD at 17:21 EDT Reading Location ID and State: [id number] / Tel , Service support , Charges/Coding Visit Charges Office Visits / Consults: [id number] OP Consult L4
== END 2023-02-28 18:30 | disposition home or self-care (01) ==
PROVIDERS: Nurse Practitioner; Emergency Provider Emergency Medicine; PCP Preventive Medicine Occupational Medicine; Visit Provider Emergency Medicine
DX: R42 Dizziness and giddiness (principal); N17.9 Acute kidney failure, unspecified; E11.9 Type 2 diabetes mellitus without complications; Z79.4 Long term (current) use of insulin; Z87.891 Personal history of nicotine dependence; I69.311 Memory deficit following cerebral infarction; R55 Syncope and collapse; Z79.01 Long term (current) use of anticoagulants; E78.5 Hyperlipidemia, unspecified; I25.10 Atherosclerotic heart disease of native coronary artery without angina pectoris; Z79.84 Long term (current) use of oral hypoglycemic drugs; Z85.51 Personal history of malignant neoplasm of bladder; Z79.899 Other long term (current) drug therapy; F41.9 Anxiety disorder, unspecified; F32.A Depression, unspecified; K21.9 Gastro-esophageal reflux disease without esophagitis
CPT/HCPCS: 70496; 70498; 71045; 80048; 84484; 85025; 85610; 93005; 96361; 96374; 96375; 99283; J7040; Q9967; A4216

== ENCOUNTER 2023-04-10 10:53 | Outpatient (RCR) | payer MEDICARE, SELFPAY ==
[2022-12-28 05:14] VITALS: BMI 35.2
[2023-04-10 12:26] LABS: International Normalized Ratio 2.1; Prothrombin Time (Protime)PT. 23.8 SECONDS (11.7-14.9)
[2023-04-10 12:37] LABS: Anion Gap 5 (5-15); BUN 20 mg/dL (7-18); Calcium,Total 9.3 mg/dL (8.5-10.1); Chloride 107 mmol/L (98-107); Creatinine, Serum 1.11 mg/dL (0.70-1.30); EST Glomerular Filtration Rate 69 mL/min (>60); Est Glom Filt Rate - Afr Amer 84 mL/min (>60); Glucose 186 mg/dL (74-106); Potassium 4.6 mmol/L (3.5-5.1); Sodium Level 136 mmol/L (136-145)
== END 2023-04-10 18:00 | disposition home or self-care (01) ==
LOC: MTLAB 10:53
PROVIDERS: PCP Preventive Medicine Occupational Medicine; Referring Provider Preventive Medicine Occupational Medicine; Visit Provider Preventive Medicine Occupational Medicine
DX: Z79.01 Long term (current) use of anticoagulants (principal); R10.9 Unspecified abdominal pain
CPT/HCPCS: 36415; 80048; 85610

== ENCOUNTER 2023-04-15 15:30 | Outpatient (RCR) | payer MEDICARE, SELFPAY ==
--- NOTE | 2023-03-18 13:26 | HP.PTEVAL_ITS ---
Patient's Visit Information Visit Information Visit Information: DOREEN PINZON is a 72 year old M referred to Physical Therapy by Dr. John Merrill DO with a diagnosis of Unsteadiness. Date of Evaluation: 03/18/23 Physical Therapist: Molly Becerra DPT Visit Plan Frequency: 2x /Week Duration: 4 Weeks Plan: Balance (Even, Uneven Surfaces, Weight Shifting, etc), Strength for functional mobility (sit to stand, stairs, gait)- *Pt does have STM issues please give all new exercises for HEP in written instructions HEP Given IE: sitting marching, HR/TR, LAQ, sit to stands, seated hip abd, hip add Subjective Subjective: Patients reports that he had a stroke years ago and he has not been moving as much any more and his balance is getting worse. He reports that he has pain as much as you wouldn't believe from head to toe that comes and goes. Movement triggers the pain- feels better when he is sitting. He is sitting in the chair for most of the day or he will take a nap. He does not use a cane or a walker- he has had falls. His last fall was about a month ago. He has a lot of dizziness- feels the room spins- thinks its when he gets up from sitting but pt is unsure. He has shortness of breathe when he moves. He is fully I with dressing and bathing but does not drive. Sometimes he will fold clothes or take trash out but he does not do any heavy household work. Goals: he does not have any. : more indep and move easier without risk of falls. He is willing to use a cane if necessary. They have a walker when necessary. Sleep: not disturbed. No Stairs at home that he uses- no stairs to enter the home. PMHx/Meds: 03/01/23 no changes. Objective Objective: Objective: Posture: poor throughout treatment session Gait: wide base of support- toes turned slightly out to the side with a slow joaquin- no AD- decreased stride length- worse with eyes closed and VOR head turns both horizontal and vertical Sit to Stand: unable without UE A- backwards lean Sensation: WFL to gross touch bilaterall ROM: WFL in bilateral LE HR/TR in standing: able with UE support for balance Flex: HS: severe Gastroc: severe Strength: Ankle: 4/5, Knee: 4/5 Hip: 4-/5 Core: poor Balance/Special Test Scores Functional Gait Assessment Score: 10 % Disability: 66.6700 CATSIB Score (Max score 120 seconds): 49 Lower Extremity Functional Score: 18 Goals Goal 1:: Patient will be I with HEP and progression Goal Time Frame: 4-6 Weeks Goal 2:: Patient will improve FGA to 25/30 to decrease risk of falls Goal Time Frame: 4-6 Weeks Goal 3:: Patient will sit to stand without UE x2 reps Goal Time Frame: 4-6 Weeks Goal 4:: Patient will report 80% improvement Goal Time Frame: 4-6 Weeks Rehabilitation Potential Physical Therapy Diagnosis: Patient presents with impaired balance impairing his functional mobility and safety with ADL's. Rehabilitation Potential: Fair Anticipated Interventions Patient/Client Instruction: Educate patient on: Benefits of Fitness Program Therapeutic Exercise to Include: Strength training, Endurance training, Balance training, Coordination, Agility training, Body mechanics, Postural training, Flexibilty training, Gait and locomotor training, Neuromotor development, Pa ssive ROM, Active ROM, Dynamic Lumbar Stabilization and Scapular Strength/Stabilization For the Purpose of:: To improve muscle performance and motor function Functional Training to Include: ADL Training and Gait training Text: Thank you for the opportunity to evaluate your patient. For Medicare and Medicare HMO plans, please review the plan of care and approve it. It will need to be FAXED BACK to us at [phone] for Medicare purposes. For Medicare only, by signing this I certify the plan of care. Please let me know if there are questions or concerns regarding this plan of care. Physician Signature: Date:
== END 2023-04-15 19:00 | disposition home or self-care (01) ==
LOC: PT 15:30
PROVIDERS: PCP Preventive Medicine Occupational Medicine; Referring Provider Preventive Medicine Occupational Medicine; Visit Provider Preventive Medicine Occupational Medicine
DX: R26.89 Other abnormalities of gait and mobility (principal)
CPT/HCPCS: 97110; 97162

== ENCOUNTER 2023-05-01 10:55 | Outpatient (RCR) | payer MEDICARE, SELFPAY ==
[2023-05-01 02:32] VITALS: BMI 35.2
[2023-05-01 12:32] LABS: International Normalized Ratio 2.3; Prothrombin Time (Protime)PT. 25.4 SECONDS (11.7-14.9)
== END 2023-05-01 18:00 | disposition home or self-care (01) ==
LOC: MTLAB 10:55
PROVIDERS: PCP Preventive Medicine Occupational Medicine; Referring Provider Preventive Medicine Occupational Medicine; Visit Provider Preventive Medicine Occupational Medicine
DX: Z79.01 Long term (current) use of anticoagulants (principal)
CPT/HCPCS: 36415; 85610

== ENCOUNTER → 2023-06-11 | Outpatient (CLI) | payer MEDICARE, SELFPAY ==
[2023-06-11 16:23] LABS: Cytology, Body Fluid / CSF SEE PATHOLOGY REPORT
--- NOTE | 2023-06-12 | CYSPIN_PTH ---
PATIENT: DOREEN PINZON LOC: [facility] U#:[id number] AGE/SX: 72/M ROOM: RE06/11/[address]: Dr. Cristofer Troncoso MD : 1950 BED: DIS: 06/11/2023 SPEC #: [id number] RECD: 06/12/23 10:11 STATUS: FERMIN REChuyita #: [id number] KIMBER: 06/12/23 00:[address]: Cristofer Troncoso DEPT: CYTOLOGY RECD BY: Adrian Garcia ENTERED: 06/12/23 10:11 SP TYPE: CYSPIN FL OTHR DR: Dr. John Merrill, DO Tissues: Urine Procedures: Pap Stain (control) Special Stain Group II Cytospin Fluid HEADER OPERATION: Not noted PRE-OP DIAGNOSIS: Acute cystitis TISSUE SUBMITTED: Urine for cytology DIAGNOSIS CYTOLOGY Urine for cytology (cytospin): Atypical urothelial cells are present (AUC), [facility] Category III. Acute inflammation. Crystalline debris present. See comment. AM:[email or web address] 06/12/2023 COMMENT Clinical correlation is suggested. The [facility] for urine cytology diagnostic categorization was used in the evaluation of this case. CYTOLOGY STUDY Slides are reviewed. CYTOLOGY GROSS Received is 60 ml of yellow cloudy fluid labeled with the patient's name and and designated per the requisition as urine. Submitted for cytology preparation. / [email or web address] 06/11/2023 TC:? CPT: 96057
== END | disposition home or self-care (01) ==
LOC: LABSPEC 16:12
PROVIDERS: PCP Preventive Medicine Occupational Medicine; Visit Provider Urology
DX: N30.00 Acute cystitis without hematuria (principal)
CPT/HCPCS: 88108; 88313

== ENCOUNTER 2023-07-10 07:02 | Day surgery (SDC) | payer MEDICARE, SELFPAY ==
[2023-07-10 07:34] VITALS: BP 132/50; PULSE 80; RESP 16; TEMP 36.5; O2SAT 96; BMI 34.5
[2023-07-10] MEDS: Lactated Ringers 1,000 ML 15 ML IV (07:45)
[2023-07-10 08:06] LABS: Bedside Glucose 116 mg/dL (74-106)
--- NOTE | 2023-07-10 08:30 | HP.PCM_ITS ---
HPI - General General Date of Service: 07/10/23 Chief Complaint: Question of hydronephrosis history of bladder cancer HPI Narrative DOREEN PINZON, is a 73 M who presents cystoscopy retrograde pyelograms evaluation of the bladder possible ureteroscopy possible balloon dilation. 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 Migraine headache Obesity Prostate disease Shortness of breath on exertion Stroke/cerebrovascular accident Syncope Wears glasses Home Medications atorvastatin 40 mg tablet 40 mg PO QHS 09/29/14 [History Last Taken 06/12/17 21:00] metformin 1,000 mg tablet 1,000 mg PO BIDCM 09/29/14 [History Last Taken 06/13/17 05:00] venlafaxine 150 mg capsule,extended release 24 hr 150 mg PO QHS 09/29/14 [History Last Taken 06/12/17 21:00] acetaminophen 325 mg tablet (Tylenol) 650 mg PO Q6H PRN PRN Mild Pain, Fever 07/14/17 [History Last Taken Unknown] warfarin 5 mg tablet (Jantoven) 5 mg PO MOWEFR 02/24/18 [History Last Taken 07/03/23] warfarin 7.5 mg tablet (Jantoven) 7.5 mg PO SUTUTHSA 02/24/18 [History Last Taken 07/03/23] pantoprazole 40 mg tablet,delayed release 40 mg PO DAILY 06/05/21 [History Last Taken 07/10/23] tamsulosin 0.4 mg capsule 0.4 mg PO DAILY 06/19/21 [History Last Taken Unknown] finasteride 5 mg tablet 5 mg PO DAILY 07/22/21 [History Last Taken Unknown] insulin human U-100 NPH-regulr 70-30 mix 100 unit/mL subcutaneous susp (Humulin 70/30 U-100 Insulin) See Rx Instructions subcut BID 02/28/23 [History Last Taken Unknown] Allergy/AdvReac Type Severity Reaction Status Date / Time Iodinated Contrast Media Allergy Rash Verified 07/03/23 13:06 [CONTRASTS] Surgical History H/O transurethral destruction of bladder lesion History of cystoscopy History of tonsillectomy and adenoidectomy Hx of colonoscopy Social History Smoking Status: Former smoker Vital Signs Vital Signs Vital Signs: 07/10/23 07:34 07/10/23 07:34 Temperature 97.7 F L Temperature Source Temporal Pulse Rate 80 Respiratory Rate 16 Respiratory Pattern Normal Blood Pressure 132/50 H Blood Pressure Mean 77 Blood Pressure Source Monitor Blood Pressure Position Semi-Fowlers Blood Pressure Location Right Arm Pulse Ox 96 Oxygen Delivery Method Room Air Weight Weight: 115.5 kg Body Mass Index (BMI) 34.5 Results Lab / Micro Data Labs: Laboratory Results - last 24 hr 07/10/23 07:31: POC Glucose 116 H
[2023-07-10] MEDS: Cefazolin 2 GM in 0.9% Normal Saline (100mL Bag) 100 ML IV (08:59)
--- NOTE | 2023-07-10 09:27 | PCM.DC ---
Discharge Instructions Diet Discharge Diet: No restrictions Activity Discharge Activity: Return to Normal Activity and May Not Drive (while taking narcotic pain medications.) Dressing / Incision Call your doctor if you observe: Fever of 101 or Higher Follow Up Care Please Follow Up With: Cristofer Troncoso MD When: Call [phone] for an appointment f/u 6 months Test Results: Test results from this visit will be discussed in further detail at your follow-up appointment, if applicable. Discharge Plan Admission Primary Reason for Your Visit: cysto Attending Provider: Cristofer Troncoso Primary Care Provider: John Merrill Discharge Orders/Prescriptions Prescriptions: Continued tamsulosin 0.4 mg capsule 0.4 mg PO DAILY finasteride 5 mg tablet 5 mg PO DAILY atorvastatin 40 MG tablet 40 mg PO QHS Patient Comments: cholesterol venlafaxine 150 MG capsule 150 mg PO QHS Patient Comments: antidepressant metformin 1,000 MG tablet 1,000 mg PO BIDCM Patient Comments: diabetes acetaminophen [Tylenol] 325 MG tablet 650 mg PO Q6H PRN PRN (Reason: Mild Pain, Fever) warfarin [Jantoven] 7.5 MG tablet 7.5 mg PO SUTUTHSA Patient Comments: blood thinner Rx Instructions: will stop 5 days prior warfarin [Jantoven] 5 MG tablet 5 mg PO MOWEFR Patient Comments: blood thinner Rx Instructions: will stop 5 days prior pantoprazole 40 mg Tablet,Delayed Release (Dr/Ec) 40 mg PO DAILY Humulin 70/30 U-100 Insulin 100 unit/mL (70-30) suspension See Rx Instructions SUBCUT BID Rx Instructions: SLIDING SCALE subcutaneously twice a day; Other Ambulatory Orders: Prothrombin Time w/INR (Routine) Timeframe: [id number] Facility: [facility] - Location: Laboratory Ordered By: Dr. Darrius Lewis Referrals / Follow Up: John Merrill DO [Primary Care Provider] - Disposition Disposition (needs filled in before D/C Order can be placed): Home, Self Care
--- NOTE | 2023-07-10 09:27 | PCM.OPRPT ---
Report of Operation Date of Procedure: 07/10/23 Pre-Operative Diagnosis: History of bladder cancer and dilation of the right ureter Post-Operative Diagnosis: The same normal refluxing right ureter Surgery/Procedure Performed:: Cystoscopy and retrograde pyelogram right side interpretation fluoroscopic images Description of Surgical Findings:: Is a 73-year-old male history of bladder cancer had resection and also multiple instillation of BCG therapy he has not had any recurrence recently had an episode of severe pain went to the ER CT scan was done that demonstrated some dilation of the right ureter the question about maybe he had passed a stone or a problem in the right ureter so when taken the surgery do a cystoscopy and evaluate the ureter and a retrograde pyelogram. Patient was taken back to the operating room and a smooth induction of anesthesia he was placed in dorsolithotomy position. The penis testicles were prepped and draped in usual fashion went into the urethra with a 21 Setswana rigid cystourethroscope I did at the dilate the meatus with sounds from 14-22 Setswana. Once this was done then I went into the urethra of the entire length the urethra was normal The prostate was normal inside the bladder he did have a like a scarred down trabeculated bladder with a history of prior TURPs the right ureteral orifice has been resected and is wide open but he is got a refluxing right ureter I then cannulated this report performed retrograde pyelogram the ureter was dilated but no obstruction no tumors were seen draining well the left ureteral orifice was normal but difficult to find within the trabeculated bladder. After the procedure was done the bladder was drained the patient anesthetic reversed spoke to the family we will see him in 6 months and in the office for checkup but everything turned out to be normal. He does have a refluxing right ureter I think this is causing causing dilation of the right ureter but no intervention is necessary Surgeon: Cristofer Troncoso Type of Anesthesia: General Admit VTE Documentation VTE Present on Admission: No VTE Mechan Device Prophylaxis: SCD's VTE Pharm Prophylaxis ordered?: No
[2023-07-10 09:35] VITALS: BP 109/66; BP 132/50; PULSE 88; RESP 16; TEMP 36.3; O2SAT 93
[2023-07-10 09:45] VITALS: BP 115/75; BP 132/50; PULSE 88; RESP 16; O2SAT 92
[2023-07-10 10:00] VITALS: BP 132/50; BP 134/69; PULSE 91; RESP 16; TEMP 36.1; O2SAT 955
[2023-07-10 10:26] LABS: Bedside Glucose 91 mg/dL (74-106)
[2023-07-10 10:30] VITALS: BP 132/50
[2023-07-12 00:43] LABS: INR Fingerstick 1.1; Prothrombin Time Fingerstick 12.9 SEC (11.7-14.9)
[2023-07-13 08:21] LABS: INR Fingerstick 1.1; Prothrombin Time Fingerstick 12.9 SEC (11.7-14.9)
== END 2023-07-10 10:50 | disposition home or self-care (01) ==
LOC: SDC 07:11 → AC 07:13
PROVIDERS: PCP Preventive Medicine Occupational Medicine; Referring Provider Urology; Visit Provider Urology
PROC: (CPT 52356; principal; 2023-07-10 08:55)
DX: N13.9 Obstructive and reflux uropathy, unspecified (principal); E11.9 Type 2 diabetes mellitus without complications; Z79.4 Long term (current) use of insulin; Z79.01 Long term (current) use of anticoagulants; Z87.891 Personal history of nicotine dependence; E78.5 Hyperlipidemia, unspecified; Z79.84 Long term (current) use of oral hypoglycemic drugs; Z85.51 Personal history of malignant neoplasm of bladder; Z86.73 Personal history of transient ischemic attack (TIA), and cerebral infarction without residual deficits; K21.9 Gastro-esophageal reflux disease without esophagitis
CPT/HCPCS: 52005; 00910; 36416; 76000; 82962; 85610; J7120; C1769; J2405

== ENCOUNTER 2023-09-21 11:20 | Outpatient (RCR) | payer MEDICARE, SELFPAY ==
[2023-05-31 05:19] VITALS: BMI 35.2
[2023-09-21 15:33] LABS: International Normalized Ratio 2.2; Prothrombin Time (Protime)PT. 24.6 SECONDS (11.7-14.9)
[2023-09-21 16:01] LABS: Anion Gap 8 (5-15); BUN 19 mg/dL (7-18); BUN/Creat Ratio 17.4 RATIO (10-20); Calcium,Total 9.5 mg/dL (8.5-10.1); Chloride 104 mmol/L (98-107); Creatinine, Serum 1.09 mg/dL (0.70-1.30); EST Glomerular Filtration Rate 70 mL/min (>60); Est Glom Filt Rate - Afr Amer 85 mL/min (>60); Glucose 126 mg/dL (74-106); Potassium 4.2 mmol/L (3.5-5.1); Sodium Level 137 mmol/L (136-145)
[2023-09-21 16:17] LABS: Microalbumin,Random Urine 32.1 mg/L (NO RANGE EST.); Microalbumin:Creatinine Ratio 23.1 mg/g CRE (<30 mg/g CRE)
== END 2023-09-21 18:00 | disposition home or self-care (01) ==
LOC: MTLAB 11:20
PROVIDERS: PCP Preventive Medicine Occupational Medicine; Referring Provider Preventive Medicine Occupational Medicine; Visit Provider Preventive Medicine Occupational Medicine
DX: Z79.01 Long term (current) use of anticoagulants (principal); E11.29 Type 2 diabetes mellitus with other diabetic kidney complication
CPT/HCPCS: 36415; 80048; 82043; 82570; 85610

== ENCOUNTER 2023-11-09 12:00 | Outpatient (RCR) | payer MEDICARE, SELFPAY ==
--- NOTE | 2023-11-03 13:00 | HP.PTEVAL ---
Patient's Visit Information Visit Information Visit Information: DOREEN PINZON is a 73 year old M referred to Physical Therapy by Dr. John Merrill DO with a diagnosis of vertigo. Date of Evaluation: 11/03/23 Physical Therapist: Cody Tavera, DPT, OCS, CSCS Visit Plan Frequency: 2x /Week Duration: 4-6 Weeks Plan: 1-2x/week(pt obstinate and may not want all visits(or any)) for positional tests and treatments and balance and strength exercises as desired/needed. Today did R HD and education on safety including using wh walker at home. next session: check HD and treat positional, when negative tests, check balance and consider balance treatment and /or strength if pt willing. Subjective Subjective: taras present. She says poor memory since a couple storkes long time ago. Recently started getting dizzy frequently. She says he walks side to side in the house. He falls out of bed alot. He says he gets dizzy sitting up and has nothing to hold on to. pt does not remember being dizzyness. Theyh are both poor historians as it is hard for him to remember and hard for her to know what is going on. Reaching up can disorient him according to her as it gets hard for him to move or he says he is dizzy. Sometimes it passes quickly. Sleeps Ok. Spends day watching tV. basic ADLs dresses adn bathes self. No regular exercises. Not employed, disabled for 30 yrs due to strokes. Has been to hospital for this dizzyness but they don't do much, check him over, nothing shows up. Falls sometimes at home mostly with reaching up or out of bed. Uses cane but forgot it today. Objective Objective: Walks back to PT I but unsteady back to PT without AD. Using cane looks much better. Trasnfers bed adn chair slow but I, keeps head movement to a minimum. LE AROM and sensation WNL to gross light touch. Cervical aROM WFL and without pain but slow head movement and starts to lose balance BW in sitting with looking up needing VC to correct. UE AROM WFL Standing balanceis poor in romberg with lots of sway and ec is LOB BW. + R HD with up torsional nystagmus 5 sec and dizzy. Treated with R angel roberts and education on BPPV Balance/Special Test Scores Functional Gait Assessment Score: 18 % Disability: 40.0000 Dizziness Score: 36 Goals Goal 1:: Abolish dizzyness with position change. Goal Time Frame: 4-6 Weeks Goal 2:: FGA to limit fall risk Goal Time Frame: 4-6 Weeks Goal 3:: I appropriate HEP to limit future problems Goal Time Frame: 4-6 Weeks Goal 4:: Walk into PT with appropriate AD without needing Assist. Goal Time Frame: 4-6 Weeks Rehabilitation Potential Physical Therapy Diagnosis: dizzyness and unsteadiness limiting comfort and function at home. Rehabilitation Potential: Fair Anticipated Interventions Patient/Client Instruction: Educate patient on: Condition and Plan of Care For the Purpose of:: To improve muscle performance and motor function, To increase tolerance to activity/condition/position, To improve ability of physical actions for home/community/work/leisure, To improve gait and locomotor functions and To improve safety with gait Therapeutic Exercise to Include: Strength training, Balance training and Gait and locomotor training Comment: positional For the Purpose of:: To improve muscle performance and motor function, To improve ability of physical actions for home/community/work/leisure, To improve gait and locomotor functions and To improve safety Text: Thank you for the opportunity to evaluate your patient. For Medicare and Medicare HMO plans, please review the plan of care and approve it. It will need to be FAXED BACK to us at [phone] for Medicare purposes. For Medicare only, by signing this I certify the plan of care. Please let me know if there are questions or concerns regarding this plan of care. Physician Signature: Date:
--- NOTE | 2023-11-13 09:51 | HP.PTDCSUM ---
Discharge Summary D/C summary: It has been my pleasure to treat DOREEN PINZON referred by Dr. John Merrill DO, with the diagnosis of vertigo for a total of 3 visit(s). Discharge Date: 11/13/23 Please see the following information for a summary of their discharge status. Subjective Subjective: He says he is a great. says much better, not walking crooked anymore. Balance feels back to normal. Activities are normal. Overall Improvement % Improvement: 85 Objective Objective/Function: - Hallpike tish today B. FGA +5 improved. pt desiring d/c Goals Goal 1:: Abolish dizzyness with position change. Goal Progress: Goal Met Goal 2:: FGA to limit fall risk Goal Progress: Goal Met Goal 3:: I appropriate HEP to limit future problems Goal Progress: Goal Met Goal 4:: Walk into PT with appropriate AD without needing Assist. Goal Progress: Goal Met Plan Plan: d/c D/C Information d/c sentence: If there are questions or concerns regarding this patient's physical therapy, please feel free to call me at [phone]. Thank you for the referral of this patient. Sincerely, Cody Tavera, DPT, OCS, CSCS Balance/Gait/Functional tests Balance/Special Test Scores Functional Gait Assessment Score: 23 % Disability: 23.3400 Dizziness Score: 12 Improvement % Improvement: 85
== END 2023-11-09 19:00 | disposition home or self-care (01) ==
LOC: PT 12:00
PROVIDERS: PCP Preventive Medicine Occupational Medicine; Referring Provider Preventive Medicine Occupational Medicine; Visit Provider Preventive Medicine Occupational Medicine
DX: R42 Dizziness and giddiness (principal)
CPT/HCPCS: 97162; 97530

== ENCOUNTER 2023-12-03 10:02 | Outpatient (RCR) | payer MEDICARE, SELFPAY ==
[2023-09-30 22:36] VITALS: BMI 35.2
[2023-12-03 11:36] LABS: International Normalized Ratio 3.3; Prothrombin Time (Protime)PT. 33.2 SECONDS (11.7-14.9)
[2023-12-03 12:00] LABS: PSA,Total - Annual Screen 0.19 ng/mL (0.00-4.00)
== END 2023-12-29 22:41 | disposition home or self-care (01) ==
LOC: LAB 10:02
PROVIDERS: PCP Preventive Medicine Occupational Medicine; Referring Provider Preventive Medicine Occupational Medicine; Visit Provider Preventive Medicine Occupational Medicine
DX: Z79.01 Long term (current) use of anticoagulants (principal); Z12.5 Encounter for screening for malignant neoplasm of prostate; E11.29 Type 2 diabetes mellitus with other diabetic kidney complication
CPT/HCPCS: 36415; 84153; 85610; G0103

== ENCOUNTER 2024-01-12 10:21 | Outpatient (RCR) | payer MEDICARE, SELFPAY ==
[2023-12-29 22:41] VITALS: BMI 35.2
[2024-01-12 12:57] LABS: International Normalized Ratio 2.6; Prothrombin Time (Protime)PT. 27.7 SECONDS (11.7-14.9)
== END 2024-01-29 18:00 | disposition home or self-care (01) ==
LOC: MTLAB 10:21
PROVIDERS: PCP Preventive Medicine Occupational Medicine; Referring Provider Preventive Medicine Occupational Medicine; Visit Provider Preventive Medicine Occupational Medicine
DX: Z79.01 Long term (current) use of anticoagulants (principal)
CPT/HCPCS: 36415; 85610

== ENCOUNTER 2024-03-28 07:46 | Outpatient (RCR) | payer MEDICARE, SELFPAY ==
[2024-02-01 08:14] VITALS: BMI 35.2
[2024-03-28 10:29] LABS: International Normalized Ratio 2.9; Prothrombin Time (Protime)PT. 29.8 SECONDS (11.7-14.9)
== END 2024-03-30 18:00 | disposition home or self-care (01) ==
LOC: MTLAB 07:46
PROVIDERS: PCP Preventive Medicine Occupational Medicine; Referring Provider Preventive Medicine Occupational Medicine; Visit Provider Preventive Medicine Occupational Medicine
DX: Z79.01 Long term (current) use of anticoagulants (principal)
CPT/HCPCS: 36415; 85610

== ENCOUNTER 2024-05-18 12:47 | Outpatient (RCR) | payer MEDICARE, SELFPAY ==
[2024-03-30 20:33] VITALS: BMI 35.2
[2024-05-18 15:10] LABS: International Normalized Ratio 2.8; Prothrombin Time (Protime)PT. 29.2 SECONDS (11.7-14.9)
[2024-05-18 15:25] LABS: ALB/GLOB Ratio 0.9 RATIO (0.9-2.4); AST(SGOT) 11 U/L (15-37); Alanine Aminotransfer ALT/SGPT 21 U/L (16-61); Albumin, Serum 3.6 g/dL (3.2-5.0); Alkaline Phosphatase 100 U/L (45-117); Anion Gap 7 (5-15); BUN 27 mg/dL (7-18); BUN/Creat Ratio 24.3 RATIO (10-20); Calcium,Total 8.9 mg/dL (8.5-10.1); Chloride 106 mmol/L (98-107); Cholesterol 151 mg/dL (200); Creatinine, Serum 1.11 mg/dL (0.70-1.30); EST Glomerular Filtration Rate 69 mL/min (>60); Est Glom Filt Rate - Afr Amer 83 mL/min (>60); Globulin 4.1 g/dL (2.2-4.2); Glucose 185 mg/dL (74-106); High Density Lipoprotein 44 mg/dL; PSA,Total - Annual Screen 0.16 ng/mL (0.00-4.00); Potassium 4.5 mmol/L (3.5-5.1); Protein, Total 7.7 g/dL (6.4-8.2); Sodium Level 138 mmol/L (136-145); Triglycerides 174 mg/dL; Very Low Density Lipoprotein 35 mg/dL (5-40)
== END 2024-05-18 18:00 | disposition home or self-care (01) ==
LOC: MTLAB 12:47
PROVIDERS: PCP Preventive Medicine Occupational Medicine; Referring Provider Preventive Medicine Occupational Medicine; Visit Provider Preventive Medicine Occupational Medicine
DX: Z79.01 Long term (current) use of anticoagulants (principal); R10.9 Unspecified abdominal pain; E11.9 Type 2 diabetes mellitus without complications; E78.49 Other hyperlipidemia; Z12.5 Encounter for screening for malignant neoplasm of prostate
CPT/HCPCS: 36415; 80053; 80061; 84153; 85610; G0103

== ENCOUNTER 2024-08-10 10:49 | Outpatient (RCR) | payer MEDICARE, SELFPAY ==
[2024-05-31 03:32] VITALS: BMI 35.2
[2024-08-10 12:56] LABS: International Normalized Ratio 2.8; Prothrombin Time (Protime)PT. 28.9 SECONDS (11.7-14.9)
== END 2024-08-10 18:00 | disposition home or self-care (01) ==
LOC: MTLAB 10:49
PROVIDERS: PCP Preventive Medicine Occupational Medicine; Referring Provider Preventive Medicine Occupational Medicine; Visit Provider Preventive Medicine Occupational Medicine
DX: Z79.01 Long term (current) use of anticoagulants (principal); R10.9 Unspecified abdominal pain
CPT/HCPCS: 36415; 85610